=== PATIENT | female | born 1950 | race Caucasian/White ===

== ENCOUNTER 2017-11-27 23:11 | Inpatient (IN) ==
[2017-11-27] MEDS ORDERED: Adenosine Inj 6 MG/2 ML Syringe IV.PUSH ONE (23:37)
[2017-11-27] MEDS ORDERED: dilTIAZem Inj 125 MG in Sodium Chlor 0.9% Inj 100 ML IV.CONT PRN (23:54)
--- NOTE | 2017-11-28 00:13 | ED ---
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 fib or SVT she is too rapid to distinguish , Adenosine to slow her to point of eval for p-waves indicated. no cardiac history Related Data Previous Rx's Medication Instructions Recorded aspirin [Aspirin Low Dose] 81 mg PO DAILY 30 Days #30 tab 12/02/17 furosemide 20 mg PO BID@0900,1800 30 Days tab 12/02/17 lisinopril 5 mg PO DAILY 30 Days #30 tab 12/02/17 metoprolol tartrate 50 mg PO BID 30 Days #60 tab 12/02/17 potassium chloride 10 meq PO DAILY 30 Days #30 tab 12/02/17 Allergies Allergy/AdvReac Type Severity Reaction Status Date / Time cefaclor [From [facility]] Allergy Rash Verified 11/27/17 17:39 Sulfa (Sulfonamide Allergy Rash Verified 11/27/17 17:39 Antibiotics) Review of Systems ROS: all other systems reviewed are negative (hot feeling all over then palpitations slight SOB) PMFSH Family History Family History Mother Family history of cancer Mother Family history of peripheral vascular disease Mother Family history of [place] (myocardial infarction) Social History Social History Substance History: No History of Abuse Second Hand Smoke Exposure: No Smoking Status: Never smoker How Often Do You Have a Drink Containing Alcohol: Never Recent Travel in [facility] within the Last 8 Weeks: No Recent Out of Country Travel within the Last 8 Weeks: No Immunization History Tetanus Immunization: Unsure Exam Narrative Exam Narrative: GENERAL: awake alert no signs of distress EKG 174 BPM SKIN: Warm and dry. HEAD: Atraumatic. Normocephalic. EYES: Pupils equal and round. No scleral icterus. No injection or drainage. ENT: No nasal bleeding or discharge. Mucous membranes pink and moist. NECK: Trachea midline. No JVD. CARDIOVASCULAR: rapid SVT vs AFIB 174 bpm RESPIRATORY: No accessory muscle use. Clear to auscultation. Breath sounds equal bilaterally. GASTROINTESTINAL: Abdomen soft, non-tender, nondistended. Hepatic and splenic margins not palpable. MUSCULOSKELETAL: Extremities without clubbing, cyanosis, or edema. No obvious deformities. NEUROLOGICAL: Awake and alert. No obvious cranial nerve deficits. Motor grossly within normal limits. Five out of 5 muscle strength in the arms and legs. Normal speech. PSYCHIATRIC: Appropriate mood and affect; insight and judgment normal. Course Initial Documented Vital Signs Temperature 98.4 F 11/27/17 23:18 Pulse Rate 115 H 11/27/17 23:18 Respiratory Rate 18 11/27/17 23:18 Blood Pressure 109/78 11/27/17 23:18 Pulse Oximetry 96 11/27/17 23:18 Last Documented Vital Signs Temperature 98.4 F 12/02/17 08:00 Pulse Rate 86 12/02/17 09:00 Respiratory Rate 17 12/02/17 08:00 Blood Pressure 104/63 12/02/17 08:00 Pulse Oximetry 94 L 12/02/17 08:43 Critical Care Time Critical Care Time: Yes Total Critical Care Time: 30 Attestation: cardiac srrhythmia and control with AV node romario meds and then re-eval placed on manager planning and ekg while adenosine 6 with cardiac pause and then return of SVT afib vs SVT second dose to reset heart possible to sinus long pause but then after brief slow heart rate afib now obvious and rate not controlled started on slow drip cardizem at 15 mg /hr but after 15 moinutes still HR 150-170 low dose of cardizem 10mg IVP with good rate control 83 but BP dropped with severe hypotension and pt felt pale and lightheaded nauseous it lasted 10 minutes while 2 liters NS placed with pressure bags and then pt returned to AFIB but rate controlled Cardizem drip started again with 5mg /hr and admitted [facility] intermediate critical care unit on drip stable at this time Medical Decision Making MDM Narrative Medical decision making narrative: Patient was in a rapid new onset supraventricular tachycardia SVT versus A. fib versus a flutter rate was 174 given of 6 of adenosine to slow down and possibly reset. Mother was febrile to slow down enough to see if there are P waves brief episode of sinus pause and then return to rapid 200 bpm 12 adenosine given reset done and then rapidly again went back into a rapid heart rate is put on diltiazem 50 mg an hour to start she is still tachycardia at 170 slowing slightly towards 150 but jumped back up to 170. Then 10 mg of Cardizem was given heart rate slows to the 80s but her pressure gets very hypotensive 66/40 2 L of fluid wide open slowly bring her pressure back up to 110/60 and she is admitted to telemetry for new onset A. fib Cardizem drip will be restarted at 5 mg an hour patient is stable at this time Medical Screen Exam Complete: Yes Emergency Medical Condition: Yes Differential Diagnosis Differential Diagnosis: diagnosis diagnosis could be A. fib RVR SVT a flutter fever induced SVT Lab Data Result diagrams: 12/02/17 05:17 12/02/17 05:17 Lab Results 11/27/17 11/27/17 11/27/17 Range/Units 23:55 23:55 23:55 WBC 8.4 (4.0-11.0) th/mm3 RBC 4.00 (4.00-5.30) mil/mm3 Hgb 12.9 (11.6-15.3) gm/dL Hct 37.7 (35.0-46.0) % MCV 94.2 (80.0-100.0) fL MCH 32.2 (27.0-34.0) pg MCHC 34.1 (32.0-36.0) % RDW 12.9 (11.6-17.2) % Plt Count 266 (150-450) th/mm3 MPV 8.8 (7.0-11.0) fL Neut % (Auto) 64.6 (16.0-70.0) % Lymph % (Auto) 21.2 (9.0-44.0) % [place] % (Auto) 12.9 H (0.0-8.0) % Eos % (Auto) 0.8 (0.0-4.0) % Baso % (Auto) 0.5 (0.0-2.0) % Neut # (Auto) 5.4 (1.8-7.7) th/mm3 Lymph # (Auto) 1.8 (1.0-4.8) th/mm3 [place] # (Auto) 1.1 H (0.0-0.9) th/mm3 Eos # (Auto) 0.1 (0.0-0.4) th/mm3 Baso # (Auto) 0.0 (0.0-0.2) th/mm3 WBC Differential . Differential Comment Auto diff final PT (9.8-11.6) sec INR Ratio APTT (24.3-30.1) sec D-Dimer Quant (PE/DVT) (0.00-0.50) mg/L FEU Sodium 143 (136-145) meq/L Potassium 3.3 L (3.5-5.1) meq/L Chloride 109 H (98-107) meq/L Carbon Dioxide 25.2 (21.0-32.0) meq/L Anion Gap 9 (5-15) meq/L BUN 13 (7-18) mg/dL Creatinine 0.75 (0.50-1.00) mg/dL Estimated GFR 77 L (>89) mL/min Random Glucose 133 H (74-106) mg/dL Calcium 8.0 L D (8.5-10.1) mg/dL Phosphorus (2.5-4.9) mg/dL Magnesium 2.0 (1.5-2.5) mg/dL Total Bilirubin 0.5 (0.2-1.0) mg/dL AST 16 (15-37) U/L ALT 14 (10-53) U/L Alkaline Phosphatase 47 (45-117) U/L Lactate Dehydrogenase (84-246) U/L Troponin I Less than 0.02 L (0.02-0.05) ng/mL B-Natriuretic Peptide (0-100) pg/mL Total Protein 7.0 D (6.4-8.2) g/dL Albumin 2.8 L (3.4-5.0) g/dL TSH (0.358-3.740) uIU/mL Free T4 (0.76-1.46) ng/dL Pleural pH Pleural RBC (0-0) /mm3 Pleural Nuc Cells (0-10) /mm3 Pleural Neutrophils % Pleural Lymphocytes % Pleural Monocytes % Pleural Histocytes % Pleural Mesothelial % Pleural Fluid Comment Pleural Total Protein gm/dL Pleural LDH U/L Pleural Glucose mg/dL 11/27/17 11/28/17 11/28/17 Range/Units 23:55 06:37 12:44 WBC 11.8 H (4.0-11.0) th/mm3 RBC 3.64 L (4.00-5.30) mil/mm3 Hgb 11.6 (11.6-15.3) gm/dL Hct 34.0 L (35.0-46.0) % MCV 93.5 (80.0-100.0) fL MCH 31.8 (27.0-34.0) pg MCHC 34.0 (32.0-36.0) % RDW 12.8 (11.6-17.2) % Plt Count 252 (150-450) th/mm3 MPV 8.4 (7.0-11.0) fL Neut % (Auto) 76.5 H (16.0-70.0) % Lymph % (Auto) 8.6 L (9.0-44.0) % [place] % (Auto) 14.6 H (0.0-8.0) % Eos % (Auto) 0.1 (0.0-4.0) % Baso % (Auto) 0.2 (0.0-2.0) % Neut # (Auto) 9.0 H (1.8-7.7) th/mm3 Lymph # (Auto) 1.0 (1.0-4.8) th/mm3 [place] # (Auto) 1.7 H (0.0-0.9) th/mm3 Eos # (Auto) 0.0 (0.0-0.4) th/mm3 Baso # (Auto) 0.0 (0.0-0.2) th/mm3 WBC Differential . Differential Comment Auto diff final PT (9.8-11.6) sec INR Ratio APTT (24.3-30.1) sec D-Dimer Quant (PE/DVT) (0.00-0.50) mg/L FEU Sodium (136-145) meq/L Potassium (3.5-5.1) meq/L Chloride (98-107) meq/L Carbon Dioxide (21.0-32.0) meq/L Anion Gap (5-15) meq/L BUN (7-18) mg/dL Creatinine (0.50-1.00) mg/dL Estimated GFR (>89) mL/min Random Glucose (74-106) mg/dL Calcium (8.5-10.1) mg/dL Phosphorus (2.5-4.9) mg/dL Magnesium (1.5-2.5) mg/dL Total Bilirubin (0.2-1.0) mg/dL AST (15-37) U/L ALT (10-53) U/L Alkaline Phosphatase (45-117) U/L Lactate Dehydrogenase (84-246) U/L Troponin I 0.07 H (0.02-0.05) ng/mL B-Natriuretic Peptide (0-100) pg/mL Total Protein (6.4-8.2) g/dL Albumin (3.4-5.0) g/dL TSH 3.720 (0.358-3.740) uIU/mL Free T4 1.36 (0.76-1.46) ng/dL Pleural pH Pleural RBC (0-0) /mm3 Pleural Nuc Cells (0-10) /mm3 Pleural Neutrophils % Pleural Lymphocytes % Pleural Monocytes % Pleural Histocytes % Pleural Mesothelial % Pleural Fluid Comment Pleural Total Protein gm/dL Pleural LDH U/L Pleural Glucose mg/dL 11/29/17 11/29/17 11/29/17 Range/Units 04:08 04:08 04:08 WBC 9.2 (4.0-11.0) th/mm3 RBC 3.46 L (4.00-5.30) mil/mm3 Hgb 11.1 L (11.6-15.3) gm/dL Hct 32.3 L (35.0-46.0) % MCV 93.4 (80.0-100.0) fL MCH 32.1 (27.0-34.0) pg MCHC 34.4 (32.0-36.0) % RDW 13.1 (11.6-17.2) % Plt Count 261 (150-450) th/mm3 MPV 8.4 (7.0-11.0) fL Neut % (Auto) 67.2 (16.0-70.0) % Lymph % (Auto) 13.4 (9.0-44.0) % [place] % (Auto) 18.2 H (0.0-8.0) % Eos % (Auto) 0.5 (0.0-4.0) % Baso % (Auto) 0.7 (0.0-2.0) % Neut # (Auto) 6.2 (1.8-7.7) th/mm3 Lymph # (Auto) 1.2 (1.0-4.8) th/mm3 [place] # (Auto) 1.7 H (0.0-0.9) th/mm3 Eos # (Auto) 0.0 (0.0-0.4) th/mm3 Baso # (Auto) 0.1 (0.0-0.2) th/mm3 WBC Differential . Differential Comment Auto diff final PT (9.8-11.6) sec INR Ratio APTT (24.3-30.1) sec D-Dimer Quant (PE/DVT) (0.00-0.50) mg/L FEU Sodium 142 (136-145) meq/L Potassium 3.2 L (3.5-5.1) meq/L Chloride 112 H (98-107) meq/L Carbon Dioxide 21.8 (21.0-32.0) meq/L Anion Gap 8 (5-15) meq/L BUN 8 (7-18) mg/dL Creatinine 0.49 L (0.50-1.00) mg/dL Estimated GFR Greater than 89 (>89) mL/min Random Glucose 110 H (74-106) mg/dL Calcium 7.8 L (8.5-10.1) mg/dL Phosphorus (2.5-4.9) mg/dL Magnesium (1.5-2.5) mg/dL Total Bilirubin (0.2-1.0) mg/dL AST (15-37) U/L ALT (10-53) U/L Alkaline Phosphatase (45-117) U/L Lactate Dehydrogenase 239 (84-246) U/L Troponin I (0.02-0.05) ng/mL B-Natriuretic Peptide (0-100) pg/mL Total Protein (6.4-8.2) g/dL Albumin (3.4-5.0) g/dL TSH (0.358-3.740) uIU/mL Free T4 (0.76-1.46) ng/dL Pleural pH Pleural RBC (0-0) /mm3 Pleural Nuc Cells (0-10) /mm3 Pleural Neutrophils % Pleural Lymphocytes % Pleural Monocytes % Pleural Histocytes % Pleural Mesothelial % Pleural Fluid Comment Pleural Total Protein gm/dL Pleural LDH U/L Pleural Glucose mg/dL 11/29/17 11/29/17 11/30/17 Range/Units 10:41 19:18 04:59 WBC (4.0-11.0) th/mm3 RBC (4.00-5.30) mil/mm3 Hgb (11.6-15.3) gm/dL Hct (35.0-46.0) % MCV (80.0-100.0) fL MCH (27.0-34.0) pg MCHC (32.0-36.0) % RDW (11.6-17.2) % Plt Count (150-450) th/mm3 MPV (7.0-11.0) fL Neut % (Auto) (16.0-70.0) % Lymph % (Auto) (9.0-44.0) % [place] % (Auto) (0.0-8.0) % Eos % (Auto) (0.0-4.0) % Baso % (Auto) (0.0-2.0) % Neut # (Auto) (1.8-7.7) th/mm3 Lymph # (Auto) (1.0-4.8) th/mm3 [place] # (Auto) (0.0-0.9) th/mm3 Eos # (Auto) (0.0-0.4) th/mm3 Baso # (Auto) (0.0-0.2) th/mm3 WBC Differential Differential Comment PT 10.8 (9.8-11.6) sec INR 1.1 Ratio APTT 30.3 H (24.3-30.1) sec D-Dimer Quant (PE/DVT) 2.25 H (0.00-0.50) mg/L FEU Sodium 143 (136-145) meq/L Potassium 3.1 L (3.5-5.1) meq/L Chloride 110 H (98-107) meq/L Carbon Dioxide 23.5 (21.0-32.0) meq/L Anion Gap 10 (5-15) meq/L BUN 6 L (7-18) mg/dL Creatinine 0.42 L (0.50-1.00) mg/dL Estimated GFR Greater than 89 (>89) mL/min Random Glucose 105 (74-106) mg/dL Calcium 7.8 L (8.5-10.1) mg/dL Phosphorus (2.5-4.9) mg/dL Magnesium (1.5-2.5) mg/dL Total Bilirubin (0.2-1.0) mg/dL AST (15-37) U/L ALT (10-53) U/L Alkaline Phosphatase (45-117) U/L Lactate Dehydrogenase (84-246) U/L Troponin I (0.02-0.05) ng/mL B-Natriuretic Peptide (0-100) pg/mL Total Protein (6.4-8.2) g/dL Albumin (3.4-5.0) g/dL TSH (0.358-3.740) uIU/mL Free T4 (0.76-1.46) ng/dL Pleural pH Pleural RBC (0-0) /mm3 Pleural Nuc Cells (0-10) /mm3 Pleural Neutrophils % Pleural Lymphocytes % Pleural Monocytes % Pleural Histocytes % Pleural Mesothelial % Pleural Fluid Comment Pleural Total Protein gm/dL Pleural LDH U/L Pleural Glucose mg/dL 11/30/17 11/30/17 11/30/17 Range/Units 09:50 09:50 13:30 WBC (4.0-11.0) th/mm3 RBC (4.00-5.30) mil/mm3 Hgb (11.6-15.3) gm/dL Hct (35.0-46.0) % MCV (80.0-100.0) fL MCH (27.0-34.0) pg MCHC (32.0-36.0) % RDW (11.6-17.2) % Plt Count (150-450) th/mm3 MPV (7.0-11.0) fL Neut % (Auto) (16.0-70.0) % Lymph % (Auto) (9.0-44.0) % [place] % (Auto) (0.0-8.0) % Eos % (Auto) (0.0-4.0) % Baso % (Auto) (0.0-2.0) % Neut # (Auto) (1.8-7.7) th/mm3 Lymph # (Auto) (1.0-4.8) th/mm3 [place] # (Auto) (0.0-0.9) th/mm3 Eos # (Auto) (0.0-0.4) th/mm3 Baso # (Auto) (0.0-0.2) th/mm3 WBC Differential Differential Comment PT (9.8-11.6) sec INR Ratio APTT (24.3-30.1) sec D-Dimer Quant (PE/DVT) (0.00-0.50) mg/L FEU Sodium (136-145) meq/L Potassium (3.5-5.1) meq/L Chloride (98-107) meq/L Carbon Dioxide (21.0-32.0) meq/L Anion Gap (5-15) meq/L BUN (7-18) mg/dL Creatinine (0.50-1.00) mg/dL Estimated GFR (>89) mL/min Random Glucose (74-106) mg/dL Calcium (8.5-10.1) mg/dL Phosphorus (2.5-4.9) mg/dL Magnesium (1.5-2.5) mg/dL Total Bilirubin (0.2-1.0) mg/dL AST (15-37) U/L ALT (10-53) U/L Alkaline Phosphatase (45-117) U/L Lactate Dehydrogenase (84-246) U/L Troponin I (0.02-0.05) ng/mL B-Natriuretic Peptide 582 H (0-100) pg/mL Total Protein (6.4-8.2) g/dL Albumin (3.4-5.0) g/dL TSH (0.358-3.740) uIU/mL Free T4 (0.76-1.46) ng/dL Pleural pH 8.0 Pleural RBC 221 H (0-0) /mm3 Pleural Nuc Cells 496 H (0-10) /mm3 Pleural Neutrophils 42 % Pleural Lymphocytes 14 % Pleural Monocytes 38 % Pleural Histocytes 5 % Pleural Mesothelial 1 % Pleural Fluid Comment Pleural Total Protein 1.7 gm/dL Pleural LDH 113 U/L Pleural Glucose 102 mg/dL 12/01/17 12/01/17 12/02/17 Range/Units 05:19 05:19 05:17 WBC 6.5 (4.0-11.0) th/mm3 RBC 3.48 L (4.00-5.30) mil/mm3 Hgb 11.0 L (11.6-15.3) gm/dL Hct 32.5 L (35.0-46.0) % MCV 93.4 (80.0-100.0) fL MCH 31.6 (27.0-34.0) pg MCHC 33.9 (32.0-36.0) % RDW 12.8 (11.6-17.2) % Plt Count 361 D (150-450) th/mm3 MPV 7.9 (7.0-11.0) fL Neut % (Auto) 60.9 (16.0-70.0) % Lymph % (Auto) 18.6 (9.0-44.0) % [place] % (Auto) 17.4 H (0.0-8.0) % Eos % (Auto) 2.5 (0.0-4.0) % Baso % (Auto) 0.6 (0.0-2.0) % Neut # (Auto) 4.0 (1.8-7.7) th/mm3 Lymph # (Auto) 1.2 (1.0-4.8) th/mm3 [place] # (Auto) 1.1 H (0.0-0.9) th/mm3 Eos # (Auto) 0.2 (0.0-0.4) th/mm3 Baso # (Auto) 0.0 (0.0-0.2) th/mm3 WBC Differential . Differential Comment Auto diff final PT (9.8-11.6) sec INR Ratio APTT (24.3-30.1) sec D-Dimer Quant (PE/DVT) (0.00-0.50) mg/L FEU Sodium 146 H (136-145) meq/L Potassium 3.5 (3.5-5.1) meq/L Chloride 108 H (98-107) meq/L Carbon Dioxide 29.8 (21.0-32.0) meq/L Anion Gap 8 (5-15) meq/L BUN 5 L (7-18) mg/dL Creatinine 0.52 (0.50-1.00) mg/dL Estimated GFR Greater than 89 (>89) mL/min Random Glucose 96 (74-106) mg/dL Calcium 8.2 L (8.5-10.1) mg/dL Phosphorus 3.0 (2.5-4.9) mg/dL Magnesium 1.9 (1.5-2.5) mg/dL Total Bilirubin (0.2-1.0) mg/dL AST (15-37) U/L ALT (10-53) U/L Alkaline Phosphatase (45-117) U/L Lactate Dehydrogenase (84-246) U/L Troponin I (0.02-0.05) ng/mL B-Natriuretic Peptide 404 H (0-100) pg/mL Total Protein (6.4-8.2) g/dL Albumin 1.9 L (3.4-5.0) g/dL TSH (0.358-3.740) uIU/mL Free T4 (0.76-1.46) ng/dL Pleural pH Pleural RBC (0-0) /mm3 Pleural Nuc Cells (0-10) /mm3 Pleural Neutrophils % Pleural Lymphocytes % Pleural Monocytes % Pleural Histocytes % Pleural Mesothelial % Pleural Fluid Comment Pleural Total Protein gm/dL Pleural LDH U/L Pleural Glucose mg/dL 12/02/17 12/02/17 Range/Units 05:17 05:17 WBC 6.4 (4.0-11.0) th/mm3 RBC 3.84 L (4.00-5.30) mil/mm3 Hgb 12.2 (11.6-15.3) gm/dL Hct 35.2 (35.0-46.0) % MCV 91.8 (80.0-100.0) fL MCH 31.8 (27.0-34.0) pg MCHC 34.6 (32.0-36.0) % RDW 12.9 (11.6-17.2) % Plt Count 420 (150-450) th/mm3 MPV 7.9 (7.0-11.0) fL Neut % (Auto) 53.3 (16.0-70.0) % Lymph % (Auto) 21.5 (9.0-44.0) % [place] % (Auto) 21.3 H (0.0-8.0) % Eos % (Auto) 3.3 (0.0-4.0) % Baso % (Auto) 0.6 (0.0-2.0) % Neut # (Auto) 3.4 (1.8-7.7) th/mm3 Lymph # (Auto) 1.4 (1.0-4.8) th/mm3 [place] # (Auto) 1.4 H (0.0-0.9) th/mm3 Eos # (Auto) 0.2 (0.0-0.4) th/mm3 Baso # (Auto) 0.0 (0.0-0.2) th/mm3 WBC Differential . Differential Comment Auto diff final PT (9.8-11.6) sec INR Ratio APTT (24.3-30.1) sec D-Dimer Quant (PE/DVT) (0.00-0.50) mg/L FEU Sodium 142 (136-145) meq/L Potassium 3.3 L (3.5-5.1) meq/L Chloride 104 (98-107) meq/L Carbon Dioxide 29.5 (21.0-32.0) meq/L Anion Gap 9 (5-15) meq/L BUN 7 (7-18) mg/dL Creatinine 0.57 (0.50-1.00) mg/dL Estimated GFR Greater than 89 (>89) mL/min Random Glucose 98 (74-106) mg/dL Calcium 8.6 (8.5-10.1) mg/dL Phosphorus 3.7 (2.5-4.9) mg/dL Magnesium (1.5-2.5) mg/dL Total Bilirubin (0.2-1.0) mg/dL AST (15-37) U/L ALT (10-53) U/L Alkaline Phosphatase (45-117) U/L Lactate Dehydrogenase (84-246) U/L Troponin I (0.02-0.05) ng/mL B-Natriuretic Peptide (0-100) pg/mL Total Protein (6.4-8.2) g/dL Albumin 2.2 L (3.4-5.0) g/dL TSH (0.358-3.740) uIU/mL Free T4 (0.76-1.46) ng/dL Pleural pH Pleural RBC (0-0) /mm3 Pleural Nuc Cells (0-10) /mm3 Pleural Neutrophils % Pleural Lymphocytes % Pleural Monocytes % Pleural Histocytes % Pleural Mesothelial % Pleural Fluid Comment Pleural Total Protein gm/dL Pleural LDH U/L Pleural Glucose mg/dL Imaging Data Radiologist's impression: Chest CTA 11/29/17 00:00 CONCLUSION: 1. No evidence of pulmonary embolus. 2. Moderate right pleural effusion. Small to moderate left-sided pleural effusion. 3. Compressive atelectasis in both lung bases, right greater than left secondary to the pleural effusions. Chest X-Ray 11/30/17 00:00 CONCLUSION: No pneumothorax status post thoracentesis. Thoracentesis Ultrasound 11/30/17 00:00 CONCLUSION: 1. Uncomplicated thoracentesis Chest X-Ray 12/02/17 06:00 CONCLUSION: There are small bilateral pleural effusions with associated volume loss and/or airspace consolidation. These changes are either stable to slightly increased from the study from 2 days ago. Discharge Plan Discharge Disposition Patient Disposition: 01 Discharge Home Discharge Condition Condition: Good Discharge Order Discharge Orders: Discharge Order (Routine); Ordered 12/02/17 Ordered By: Wil Jones Discharge Details Anticipated Discharge Date: 12/02/17 Discharge Comment: partient will need to discuss anticoagulation with cardiology , primary care. Physicians Team ED Provider: Alberto Mccall Primary Care Provider: Alonzo Howe Attending Provider: Wil Jones Other Providers: Taurus Power Steven R Status ED Status: Left Department Discharge Information Discharge Date/Time: 11/28/17 03:28
[2017-11-28 00:55] LABS: Baso % (Auto) 0.5 % (0.0-2.0); Eos # (Auto) 0.1 th/mm3 (0.0-0.4); Eos % (Auto) 0.8 % (0.0-4.0); Hematocrit 37.7 % (35.0-46.0); Hemoglobin 12.9 gm/dL (11.6-15.3); Lymph # (Auto) 1.8 th/mm3 (1.0-4.8); Lymph % (Auto) 21.2 % (9.0-44.0); Mean Corpuscular HGB Conc 34.1 % (32.0-36.0); Mean Corpuscular Hemoglobin 32.2 pg (27.0-34.0); Mean Corpuscular Volume 94.2 fL (80.0-100.0); Mean Platelet Volume 8.8 fL (7.0-11.0); Mono # (Auto) 1.1 th/mm3 (0.0-0.9); Mono % (Auto) 12.9 % (0.0-8.0); Neut # (Auto) 5.4 th/mm3 (1.8-7.7); Neut % (Auto) 64.6 % (16.0-70.0); Platelet Count 266 th/mm3 (150-450); Red Cell Distribution Width 12.9 % (11.6-17.2); White Blood Count 8.4 th/mm3 (4.0-11.0)
[2017-11-28 01:29] LABS: Alanine Aminotransferase 14 U/L (10-53); Albumin 2.8 g/dL (3.4-5.0); Alkaline Phosphatase 47 U/L (45-117); Anion Gap 9 meq/L (5-15); Aspartate Aminotransferase 16 U/L (15-37); Blood Urea Nitrogen 13 mg/dL (7-18); Carbon Dioxide 25.2 meq/L (21.0-32.0); Chloride 109 meq/L (98-107); Glomerular Filtration Rate 77 mL/min (>89); Glucose,Random 133 mg/dL (74-106); Potassium 3.3 meq/L (3.5-5.1); Sodium 143 meq/L (136-145)
[2017-11-28] MEDS ORDERED: Sodium Chlor 0.9% Inj 500 ML IV.SIG ONE (01:48)
[2017-11-28] MEDS ORDERED: Sod Chloride 0.9% Inj 1,000 ML IV.SIG ONE (01:48)
[2017-11-28] MEDS ORDERED: Adenosine Inj 6 MG/2 ML Syringe IV.PUSH ONE (01:52)
[2017-11-28] MEDS ORDERED: Ketorolac Inj 30 MG/ML (IVP) Vial IV.PUSH ONE (01:53)
[2017-11-28] MEDS ORDERED: Bisacodyl 10 MG Supp RECTAL PRN (02:02)
[2017-11-28] MEDS ORDERED: Acetaminophen 325 MG Tablet PO PRN (02:02)
[2017-11-28] MEDS ORDERED: Potassium Chloride 25 MEQ Effervescent Tablet PO ONE (03:23)
[2017-11-28] MEDS ORDERED: Sodium Chloride 0.9% 2 ML Flush PRN IV.FLUSH (03:25)
[2017-11-28] MEDS: Sod Chloride 0.9% Inj 1,000 ML IV.CONT SCH ×3 (04:03→23:32)
--- NOTE | 2017-11-28 04:20 | P.HPIM ---
History of Present Illness Service: [facility] hospitalists . 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 She returned on 11/28/17 complaining of feeling hot and hearing an irregular and fast rhythm with her stethoscope at home. She was found to be in Atrial fibrillation with RVR and is now admitted to the hospitalist service for further evaluation and management. The patient is seen in her hospital room. She reports that she had 5 days of fever and chills and they seem to go away on Thursday but returned Thursday morning prompting her visit to the emergency room. Her temperature was 101.0 in the ER. Flu testing was negative for flu a and B. Blood cultures were drawn. Chest x-ray showed trace left base atelectasis and was otherwise normal. The patient was treated with Motrin and Tylenol and sent home. After the patient was discharged from the emergency room, she went home to lie down on her bed. She noticed that she was feeling extremely warm and she decided to listen to her chest with her stethoscope. She noticed a rapid and irregular rate and decided to return to the hospital. She was also experiencing severe chest pain that was worse when she tried to take a deep breath and was also worse when she was laying on side and was relieved when she rolled over onto her right side. She is a lifelong non-smoker who recently lost her mother to cancer. . Inpatient Certification: I certify that the inpatient services were ordered in accordance with Medicare regulations governing the order. This includes certification that hospital inpatient services are reasonable and necessary and in the case of services not specified as inpatient-only under 42 CFR 419.22(n), that they are appropriately provided as inpatient services in accordance to with the 2-midnight benchmark under 43 CFR 412.3(e) Estimated Total Length of Stay (Days): 2 Plans for Post Hospital Care: Not yet determined Review of Systems All other systems reviewed negative except as stated in HPI [facility] - History History Provided By: Patient - Medical History Medical History: Medical History (Last Updated 11/28/17 @ 04:17 by VERNA Abdi) Thyroid nodule Onset Date: ~10/2016 - Surgical History Surgical History: Surgical History (Last Updated 11/28/17 @ 04:17 by VERNA Abdi) History of breast biopsy History of tonsillectomy History of tubal ligation - Family History Family History: Family History (Last Updated 11/28/17 @ 04:18 by VERNA Abdi) Mother Family history of cancer Mother Family history of peripheral vascular disease Mother Family history of PA (myocardial infarction) - Tobacco History Smoking Status: Never smoker - Alcohol History How Often Do You Have a Drink Containing Alcohol: Never - Substance Use History Substance History: No History of Abuse - Travel History Recent Travel in the [place] Within the Last 8 Weeks: No Recent Travel Out of the Country Within the Last 8 Weeks: No - Immunization History Tetanus Immunization: Unsure Medications and Allergies Active Medications: Active Medications Acetaminophen (Tylenol) 650 mg PO Q4H PRN PRN Reason: Temp > 100.4 Al Hydroxide/Mg Hydroxide (Milk Of Magnesia Liq) 30 ml PO Q12H PRN PRN Reason: Mild Constipation Bisacodyl (Dulcolax Supp) 10 mg RECTAL DAILY PRN PRN Reason: SEVERE CONSITIPATION Diltiazem HCl 125 mg/ Sodium (Chloride) 125 mls @ 5 mls/hr IV.CONT TITRATE PRN ; Protocol PRN Reason: Per Protocol Last Titration: 11/28/17 02:20 Dose: 5 mg/hr, 5 mls/hr Sodium Chloride (Ns Inj) 1,000 mls @ 100 mls/hr IV.CONT .Q10H CHIO Last Admin: 11/28/17 04:03 Dose: 100 mls/hr Lactulose (Lactulose Liq) 30 ml PO DAILY PRN PRN Reason: SEVERE CONSITIPATION Ondansetron HCl (Zofran Inj) 4 mg IV.PUSH Q6H PRN PRN Reason: NAUSEA OR VOMITING Senna/Docusate Sodium (Sandra-Colace) 1 tab PO BID CHIO Sennosides (Senokot) 17.2 mg PO Q12H PRN PRN Reason: Moderate Constipation Sodium Chloride (Ns Flush) 2 ml IV.FLUSH BID CHIO Sodium Chloride (Ns Flush) 2 ml IV.FLUSH PRN PRN PRN Reason: FLUSH AFTER USING IV ACCESS Allergies Allergy/AdvReac Type Severity Reaction Status Date / Time cefaclor [From Ceclor] Allergy Rash Verified 11/27/17 17:39 Sulfa (Sulfonamide Allergy Rash Verified 11/27/17 17:39 Antibiotics) Home Medications Medication Instructions Recorded Confirmed Type No Known Home Medications 11/27/17 11/27/17 History Exam Vital signs: Vital Signs 11/27/17 23:18 11/27/17 23:32 11/27/17 23:45 Temperature 98.4 F Pulse Rate 115 H 180 H 182 H Respiratory Rate 18 24 Blood Pressure 109/78 140/78 136/61 Pulse Oximetry 96 99 11/28/17 00:00 11/28/17 00:21 11/28/17 01:00 Temperature Pulse Rate 164 H 145 H 150 H Respiratory Rate 20 Blood Pressure 120/68 107/60 124/68 Pulse Oximetry 99 98 11/28/17 01:20 11/28/17 01:30 11/28/17 01:45 Temperature Pulse Rate 96 H 88 100 H Respiratory Rate Blood Pressure 80/53 L 81/51 L 90/65 L Pulse Oximetry 11/28/17 02:00 11/28/17 02:30 Temperature Pulse Rate 106 H 120 H Respiratory Rate Blood Pressure 110/66 112/80 Pulse Oximetry Intake & Output 11/27/17 11/27/17 11/28/17 06:59 18:59 06:59 Intake Total 1500 / 1500 Balance 1500 / 1500 Weight 61 kg Intake: IV 1500 / 1500 NS Inj 1,000 ML @ Wide Open IV. 1000 / 1000 SIG BOLUS ONE Rx#:[id number] NS Inj 500 ML @ Wide Open IV. 500 / 500 SIG BOLUS ONE Rx#:[id number] Narrative: GENERAL: This is a well-nourished, well-developed patient, in no apparent distress. SKIN: No rashes, ecchymoses or lesions. Cool and dry. HEAD: Atraumatic. Normocephalic. EYES: No scleral icterus. No injection or drainage. ENT: Nose without bleeding, purulent drainage. NECK: Trachea midline. No JVD. CARDIOVASCULAR: Irregularly irregular and rapid rate without murmurs, gallops, or rubs. RESPIRATORY: Clear to auscultation. Breath sounds equal bilaterally. No wheezes , rales, or rhonchi. GASTROINTESTINAL: Abdomen soft, non-tender, nondistended. No guarding. MUSCULOSKELETAL: Extremities without clubbing, cyanosis, or edema. No calf tenderness. NEUROLOGICAL: Awake and alert. Motor and sensory grossly within normal limits. Normal speech. . Results - Labs CBC & Chem 7: 11/27/17 23:55 11/27/17 23:55 Labs: Short CBC 11/27/17 Range/Units 23:55 WBC 8.4 (4.0-11.0) th/mm3 Hgb 12.9 (11.6-15.3) gm/dL Hct 37.7 (35.0-46.0) % Plt Count 266 (150-450) th/mm3 BMP 11/27/17 23:55 Sodium 143 Potassium 3.3 L Chloride 109 H Carbon Dioxide 25.2 BUN 13 Creatinine 0.75 Calcium 8.0 L D Cardiac Enzymes 11/27/17 Range/Units 23:55 Troponin I Less than 0.02 L (0.02-0.05) ng/mL Liver Function 11/27/17 Range/Units 23:55 Total Bilirubin 0.5 (0.2-1.0) mg/dL AST 16 (15-37) U/L ALT 14 (10-53) U/L Alkaline Phosphatase 47 (45-117) U/L Albumin 2.8 L (3.4-5.0) g/dL Caprini VTE Risk Assessment Caprini VTE Risk Assessment: Moderate/High Risk (score >= 2) Caprini Risk Assessment Model: Point Value = 1 Point Value = 2 Point Value = 3 Point Value = 5 Age 41-60 Minor surgery BMI > 25 kg/m2 Swollen legs Varicose veins or History of unexplained or recurrent spontaneous Oral contraceptives or hormone replacement Sepsis (< 1 month) Serious lung disease, including pneumonia (< 1 month) Abnormal pulmonary function Acute myocardial infarction Congestive heart failure (< 1 month) History of inflammatory bowel disease Medical patient at bed rest Age 61-74 Arthroscopic surgery Major open surgery (> 45 min) Laparoscopic surgery (> 45 min) Malignancy Confined to bed (> 72 hours) Immobilizing plaster cast Central venous access Age >= 75 History of VTE Family history of VTE Factor V Leiden Prothrombin [id number] Lupus anticoagulant Anticardiolipin antibodies Elevated serum homocysteine Heparin-induced thrombocytopenia Other congenital or acquired thrombophilia Stroke (< 1 month) Elective arthroplasty Hip, pelvis, or leg fracture Acute spinal cord injury (< 1 month) Prophylaxis Regimen: Total Risk Factor Score Risk Level Prophylaxis Regimen 0-1 Low Early ambulation 2 Moderate Order ONE of the following: *Sequential Compression Device (SCD) *Heparin 5000 units SQ BID 3-4 Higher Order ONE of the following medications: *Heparin 5000 units SQ TID *Enoxaparin/Lovenox 40 mg SQ daily (WT < 150 kg, CrCl > 30 mL/min) *Enoxaparin/Lovenox 30 mg SQ daily (WT < 150 kg, CrCl > 10-29 mL/min) *Enoxaparin/Lovenox 30 mg SQ BID (WT < 150 kg, CrCl > 30 mL/min) AND/OR *Sequential Compression Device (SCD) 5 or more Highest Order ONE of the following medications: *Heparin 5000 units SQ TID (Preferred with Epidurals) *Enoxaparin/Lovenox 40 mg SQ daily (WT < 150 kg, CrCl > 30 mL/min) *Enoxaparin/Lovenox 30 mg SQ daily (WT < 150 kg, CrCl > 10-29 mL/min) *Enoxaparin/Lovenox 30 mg SQ BID (WT < 150 kg, CrCl > 30 mL/min) AND *Sequential Compression Device (SCD) 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 She returned on 11/28/17 complaining of feeling hot and hearing an irregular and fast rhythm with her stethoscope at home. She was found to be in Atrial fibrillation with RVR and is now admitted to the hospitalist service for further evaluation and management. Atrial fibrillation with RVR, new onset - continue cardizem drip - replace electrolytes, K+ 3.3 on admission; check magnesium - check TSH and free T4 - patient has a history of a thyroid nodule and was possibly hypothyroid a year ago (states thyroid levels normalized after she stopped drinking smart water) - consult cardiology -Continuous cardiac telemetry Chest pain - serial EKGs and cardiac enzymes - check echocardiogram for cardiac structure and function given positional nature of patient's chest pain and recent flu-like symptoms - PRN Uriah 5/325 mg for pain history of DVT prophylaxis - Heparin 5000 mg subq q8h . Discussed Condition With: Patient, RN, and Dr. Mckeon .
[2017-11-28 04:51] LABS: Free T4 (Free Thyroxine) 1.36 ng/dL (0.76-1.46); Thyroid Stimulating Hormone 3.72 uIU/mL (0.358-3.740)
[2017-11-28] MEDS: Heparin - SQ 10,000 UNITS/ML Vial SQ SCH ×3 (06:17→21:32)
[2017-11-28 06:55] LABS: Baso % (Auto) 0.2 % (0.0-2.0); Eos % (Auto) 0.1 % (0.0-4.0); Hemoglobin 11.6 gm/dL (11.6-15.3); Lymph % (Auto) 8.6 % (9.0-44.0); Mean Corpuscular Hemoglobin 31.8 pg (27.0-34.0); Mean Corpuscular Volume 93.5 fL (80.0-100.0); Mean Platelet Volume 8.4 fL (7.0-11.0); Mono # (Auto) 1.7 th/mm3 (0.0-0.9); Mono % (Auto) 14.6 % (0.0-8.0); Neut % (Auto) 76.5 % (16.0-70.0); Platelet Count 252 th/mm3 (150-450); Red Blood Count 3.64 mil/mm3 (4.00-5.30); Red Cell Distribution Width 12.8 % (11.6-17.2); White Blood Count 11.8 th/mm3 (4.0-11.0)
--- NOTE | 2017-11-28 08:55 | P.PNIM ---
Subjective Interval history: f/u; a-fib with RVR in no acute distress. has some pleuritic chest pain. no fever since last night. no cough or sob. Physical Exam Vital signs: Vital Signs 11/27/17 23:18 11/27/17 23:32 11/27/17 23:45 Temperature 98.4 F Pulse Rate 115 H 180 H 182 H Respiratory Rate 18 24 Blood Pressure 109/78 140/78 136/61 Pulse Oximetry 96 99 11/28/17 00:00 11/28/17 00:21 11/28/17 01:00 Temperature Pulse Rate 164 H 145 H 150 H Respiratory Rate 20 Blood Pressure 120/68 107/60 124/68 Pulse Oximetry 99 98 11/28/17 01:20 11/28/17 01:30 11/28/17 01:45 Temperature Pulse Rate 96 H 88 100 H Respiratory Rate Blood Pressure 80/53 L 81/51 L 90/65 L Pulse Oximetry 11/28/17 02:00 11/28/17 02:30 11/28/17 03:30 Temperature 98.4 F Pulse Rate 106 H 120 H 131 H Respiratory Rate Blood Pressure 110/66 112/80 84/65 L Pulse Oximetry 93 L 11/28/17 03:45 11/28/17 04:00 11/28/17 04:15 Temperature Pulse Rate 131 H 133 H 115 H Respiratory Rate Blood Pressure 92/59 L 94/64 L Pulse Oximetry 93 L 93 L 94 L 11/28/17 04:30 11/28/17 04:45 11/28/17 05:00 Temperature Pulse Rate 97 H 92 H 87 Respiratory Rate 18 Blood Pressure 93/61 L 86/55 L 106/64 Pulse Oximetry 94 L 96 94 L 11/28/17 05:15 11/28/17 05:30 11/28/17 05:45 Temperature Pulse Rate 93 H 91 H 94 H Respiratory Rate Blood Pressure 93/58 L 94/60 L 95/63 L Pulse Oximetry 93 L 94 L 91 L 11/28/17 06:00 11/28/17 06:15 11/28/17 06:30 Temperature Pulse Rate 92 H 93 H 91 H Respiratory Rate Blood Pressure 91/64 L 96/64 L 96/67 L Pulse Oximetry 96 94 L 94 L Intake & Output 11/27/17 11/28/17 11/28/17 18:59 06:59 18:59 Intake Total 1740 / 1740 Output Total 600 / 600 Balance 1140 / 1140 Weight 62.5 kg Intake: IV 1500 / 1500 NS Inj 1,000 ML @ Wide Open IV. 1000 / 1000 SIG BOLUS ONE Rx#:[id number] NS Inj 500 ML @ Wide Open IV. 500 / 500 SIG BOLUS ONE Rx#:[id number] Oral 240 / 240 Output: Urine 600 / 600 - Constitutional no acute distress - Routine Respiratory Exam Present: CTA bilaterally - Routine Cardiovascular Exam Present: tachycardia, irregularly irregular - Routine Abdominal Exam Present: soft - Routine Extremities Exam Comments: no pedal edema. - Routine Neurological Exam Present: alert, oriented X3 Results - Labs CBC & Chem 7: 11/28/17 06:37 11/27/17 23:55 Laboratory Results - last 24 hr 11/27/17 11/27/17 11/27/17 23:55 23:55 23:55 WBC 8.4 RBC 4.00 Hgb 12.9 Hct 37.7 MCV 94.2 MCH 32.2 MCHC 34.1 RDW 12.9 Plt Count 266 MPV 8.8 Neut % (Auto) 64.6 Lymph % (Auto) 21.2 [place] % (Auto) 12.9 H Eos % (Auto) 0.8 Baso % (Auto) 0.5 Neut # (Auto) 5.4 Lymph # (Auto) 1.8 [place] # (Auto) 1.1 H Eos # (Auto) 0.1 Baso # (Auto) 0.0 WBC Differential . Differential Comment Auto diff final Sodium 143 Potassium 3.3 L Chloride 109 H Carbon Dioxide 25.2 Anion Gap 9 BUN 13 Creatinine 0.75 Estimated GFR 77 L Random Glucose 133 H Calcium 8.0 L D Magnesium 2.0 Total Bilirubin 0.5 AST 16 ALT 14 Alkaline Phosphatase 47 Troponin I Less than 0.02 L Total Protein 7.0 D Albumin 2.8 L TSH Free T4 11/27/17 11/28/17 23:55 06:37 WBC 11.8 H RBC 3.64 L Hgb 11.6 Hct 34.0 L MCV 93.5 MCH 31.8 MCHC 34.0 RDW 12.8 Plt Count 252 MPV 8.4 Neut % (Auto) 76.5 H Lymph % (Auto) 8.6 L [place] % (Auto) 14.6 H Eos % (Auto) 0.1 Baso % (Auto) 0.2 Neut # (Auto) 9.0 H Lymph # (Auto) 1.0 [place] # (Auto) 1.7 H Eos # (Auto) 0.0 Baso # (Auto) 0.0 WBC Differential . 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 She returned on 11/28/17 complaining of feeling hot and hearing an irregular and fast rhythm with her stethoscope at home. She was found to be in Atrial fibrillation with RVR and is now admitted to the hospitalist service for further evaluation and management. Atrial fibrillation with RVR, new onset - continue cardizem drip - replace electrolytes, K+ 3.3 on admission- - TSH/ free T4 WNL -check echo - consulted cardiology -Continuous cardiac telemetry Chest pain/ flu-like illness - serial EKGs and cardiac enzymes - check echocardiogram for cardiac structure and function given positional nature of patient's chest pain and recent flu-like symptoms -blood cultures from 11/27 pending; will follow. -continue supportive care with IV fluid and pain control. DVT prophylaxis - Heparin 5000 mg subq q8h
[2017-11-28] MEDS: Senna/Docusate Sodium 8.6/50 MG Tablet PO SCH ×2 (10:07→20:23)
[2017-11-28] MEDS: Sodium Chloride 0.9% 2 ML Flush BID IV.FLUSH SCH ×2 (10:07→20:24)
[2017-11-28] MEDS: Ibuprofen 400 MG Tablet PO PRN ×2 (11:28→19:42)
--- NOTE | 2017-11-28 12:51 | ECHRPT ---
Indication: ATRIAL FIB/FLUTTER CONCLUSIONS Normal left ventricular size. Wall thickness is normal. The left ventricular systolic function is grossly normal on limited imaging. Normal right ventricular size and systolic function. Mild mitral valve regurgitation. There is mild tricuspid valve regurgitation. The estimated pulmonary arterial pressure is 43.4 mmHg. Trivial pulmonary valve regurgitation. BP: / HR: Rhythm: Atrial fibrillation, Atrial flut ter MEASUREMENTS (Male / Female) Normal Values Technical Quality:Fair 2D ECHO LV Diastolic Diameter PLAX 4.4 cm 4.2 - 5.9 / 3.9 - 5.3 cm LV Systolic Diameter PLAX 2.7 cm IVS Diastolic Thickness 0.8 cm 0.6 - 1.0 / 0.6 - 0.9 cm LVPW Diastolic Thickness 0.8 cm 0.6 - 1.0 / 0.6 - 0.9 cm LV Relative Wall Thickness 0.4 RV Internal Dim ED PLAX 2.6 cm LVOT Diameter 2.0 cm Aortic Root Diameter 3.3 cm LA Systolic Diameter LX 2.9 cm 3.0 - 4.0 / 2.7 - 3.8 cm DOPPLER AV Peak Velocity 113.0 cm/s AV Peak Gradient 5.1 mmHg AV Mean Gradient 3.0 mmHg AV Velocity Time Integral 17.9 cm LVOT Peak Velocity 85.0 cm/s LVOT Peak Gradient 2.9 mmHg LVOT Velocity Time Integral 13.5 cm AV Area Cont Eq vti 2.4 cm AV Area Cont Eq pk 2.4 cm Mitral E Point Velocity 86.4 cm/s Mitral A Point Velocity 31.1 cm/s Mitral E to A Ratio 2.8 LV E' Lateral Velocity 9.9 cm/s Mitral E to LV E' Lateral Ratio 8.7 LV E' Septal Velocity 10.4 cm/s Mitral E to LV E' Septal Ratio 8.3 TR Peak Velocity 289.0 cm/s TR Peak Gradient 33.0 mmHg Right Atrial Pressure 10.0 mmHg Pulmonary Artery Systolic Pressu 43.4 mmHg Right Ventricular Systolic Press 43.4 mmHg PV Peak Velocity 47.4 cm/s PV Peak Gradient 0.9 mmHg FINDINGS LEFT VENTRICLE Normal left ventricular size. Wall thickness is normal. The left ventricular systolic function is grossly normal on limited imaging. RIGHT VENTRICLE Normal right ventricular size and systolic function. LEFT ATRIUM The left atrial size is normal. RIGHT ATRIUM The right atrial size is normal. ATRIAL SEPTUM No atrial level shunt is demonstrated by color flow Doppler interrogation. AORTA The aortic root and proximal ascending aorta are not well visualized. MITRAL VALVE [id number] mitral valve regurgitation. AORTIC VALVE Trileaflet aortic valve. No aortic valve stenosis or regurgitation. TRICUSPID VALVE There is mild tricuspid valve regurgitation. The estimated pulmonary arterial pressure is 43.4 mmHg. PULMONARY VALVE Trivial pulmonary valve regurgitation. VESSELS The inferior vena cava is normal in size. PERICARDIUM No pericardial effusion. Jagdish Nuñez MD (Electronically Signed) Final Date:28 November 2017 12:50
--- NOTE | 2017-11-28 13:11 | ECG ---
Date Performed: 11/27/2017 Time Performed: 23:28:26 PTAGE: 67 years EKG: ATRIAL FIBRILLATION WITH RAPID VENTRICULAR RESPONSE MARKED LEFT AXIS DEVIATION MODERATE ST DEPRESSION ABNORMAL ECG INTERPRETATION BASED ON A DEFAULT AGE OF 40 YEARS NO PREVIOUS TRACING DOCTOR: Jagdish Nuñez Interpretating Date/Time 11/28/2017 13:08:12
[2017-11-29] MEDS: Ibuprofen 400 MG Tablet PO PRN ×3 (03:34→19:35)
[2017-11-29 04:23] LABS: Baso # (Auto) 0.1 th/mm3 (0.0-0.2); Baso % (Auto) 0.7 % (0.0-2.0); Eos % (Auto) 0.5 % (0.0-4.0); Hematocrit 32.3 % (35.0-46.0); Hemoglobin 11.1 gm/dL (11.6-15.3); Lymph # (Auto) 1.2 th/mm3 (1.0-4.8); Lymph % (Auto) 13.4 % (9.0-44.0); Mean Corpuscular HGB Conc 34.4 % (32.0-36.0); Mean Corpuscular Hemoglobin 32.1 pg (27.0-34.0); Mean Corpuscular Volume 93.4 fL (80.0-100.0); Mean Platelet Volume 8.4 fL (7.0-11.0); Mono # (Auto) 1.7 th/mm3 (0.0-0.9); Mono % (Auto) 18.2 % (0.0-8.0); Neut # (Auto) 6.2 th/mm3 (1.8-7.7); Neut % (Auto) 67.2 % (16.0-70.0); Platelet Count 261 th/mm3 (150-450); Red Blood Count 3.46 mil/mm3 (4.00-5.30); Red Cell Distribution Width 13.1 % (11.6-17.2); White Blood Count 9.2 th/mm3 (4.0-11.0)
[2017-11-29 04:50] LABS: Anion Gap 8 meq/L (5-15); Blood Urea Nitrogen 8 mg/dL (7-18); Calcium 7.8 mg/dL (8.5-10.1); Carbon Dioxide 21.8 meq/L (21.0-32.0); Chloride 112 meq/L (98-107); Glomerular Filtration Rate Greater Than 89 mL/min (>89); Glucose,Random 110 mg/dL (74-106); Potassium 3.2 meq/L (3.5-5.1); Sodium 142 meq/L (136-145)
[2017-11-29] MEDS ORDERED: Potassium Chlor 10 mEq Premix 10 MEQ/100 ML PIGGYBACK IV.SIG ONE (05:12)
[2017-11-29] MEDS: Heparin - SQ 10,000 UNITS/ML Vial SQ SCH ×2 (05:31→13:09)
--- NOTE | 2017-11-29 08:54 | P.PNIM ---
Subjective Interval history: f/u; a-fib with RVR in no acute distress. although still on oxygen via [place]. no fever today. denies chest pain. says that overall she's feeling better although still with some sob and cough. still on Cardizem drip. Physical Exam Vital signs: Vital Signs 11/28/17 09:00 11/28/17 10:00 11/28/17 11:00 Temperature 98.9 F Pulse Rate 94 H 89 93 H Respiratory Rate 20 Blood Pressure 114/63 Pulse Oximetry 91 L 11/28/17 12:00 11/28/17 13:00 11/28/17 14:00 Temperature Pulse Rate 95 H 88 92 H Respiratory Rate Blood Pressure Pulse Oximetry 11/28/17 15:00 11/28/17 16:00 11/28/17 17:00 Temperature 98.3 F Pulse Rate 85 83 98 H Respiratory Rate 20 Blood Pressure 104/63 Pulse Oximetry 91 L 11/28/17 18:00 11/28/17 19:00 11/28/17 20:00 Temperature 99.7 F H Pulse Rate 98 H 98 H 92 H Respiratory Rate 20 Blood Pressure 112/58 L Pulse Oximetry 93 L 11/28/17 20:22 11/28/17 21:21 11/28/17 22:00 Temperature Pulse Rate 100 H 104 H Respiratory Rate 18 Blood Pressure Pulse Oximetry 11/28/17 23:00 11/29/17 00:00 11/29/17 01:00 Temperature 98.5 F Pulse Rate 80 80 81 Respiratory Rate 22 Blood Pressure 92/56 L Pulse Oximetry 92 L 11/29/17 02:00 11/29/17 03:00 11/29/17 03:58 Temperature 99.0 F Pulse Rate 83 90 91 H Respiratory Rate 18 Blood Pressure 103/67 Pulse Oximetry 93 L 11/29/17 05:00 11/29/17 06:00 Temperature Pulse Rate 80 83 Respiratory Rate Blood Pressure Pulse Oximetry Intake & Output 11/28/17 11/29/17 11/29/17 18:59 06:59 18:59 Intake Total 1000 / 1000 1730 / 1730 Output Total 200 / 200 1100 / 1100 Balance 800 / 800 630 / 630 Weight 62 kg Intake: IV 1000 / 1000 1010 / 1010 NS Inj 1,000 ML @ 100 mls/hr IV 1000 / 1000 1000 / 1000 .CONT .Q10H CHIO Rx#:[id number] Cardizem Inj 125 MG In NS Inj 0 / 0 100 ML @ 5 MG/HR 5 mls/hr IV. CONT TITRATE PRN Rx#:[id number] KCl 10 mEq Premix Inj 10 meq In 100 ml @ 100 mls/hr IV.SIG ONCE ONE Rx#:[id number] Oral 720 / 720 Output: Urine 200 / 200 1100 / 1100 Other: # Voids 4 Date of Last Bowel Movement 11/28/17 11/28/17 # Bowel Movements 2 - Constitutional no acute distress - Routine Respiratory Exam Present: CTA bilaterally, diminished air movement (in the bases.) - Routine Cardiovascular Exam Present: tachycardia, irregularly irregular - Routine Abdominal Exam Present: soft - Routine Extremities Exam Comments: no pedal edema. - Routine Neurological Exam Present: alert, oriented X3 Results - Labs CBC & Chem 7: 11/29/17 04:08 11/29/17 04:08 Laboratory Results - last 24 hr 11/28/17 11/29/17 11/29/17 12:44 04:08 04:08 WBC 9.2 RBC 3.46 L Hgb 11.1 L Hct 32.3 L MCV 93.4 MCH 32.1 MCHC 34.4 RDW 13.1 Plt Count 261 MPV 8.4 Neut % (Auto) 67.2 Lymph % (Auto) 13.4 [place] % (Auto) 18.2 H Eos % (Auto) 0.5 Baso % (Auto) 0.7 Neut # (Auto) 6.2 Lymph # (Auto) 1.2 [place] # (Auto) 1.7 H Eos # (Auto) 0.0 Baso # (Auto) 0.1 WBC Differential . 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 She returned on 11/28/17 complaining of feeling hot and hearing an irregular and fast rhythm with her stethoscope at home. She was found to be in Atrial fibrillation with RVR and is now admitted to the hospitalist service for further evaluation and management. Atrial fibrillation with RVR, new onset - will start on oral Cardizem and try to taper off the Cardizem drip - TSH/ free T4 WNL - echo with normal EF - consulted cardiology -Continuous cardiac telemetry -check d-dimer Chest pain/ flu-like illness -continue supportive care with IV fluid and pain control. Hypokalemia; replaced- will monitor. DVT prophylaxis - Heparin 5000 mg subq q8h Discharge Planning: within the next 48 hrs if clinically improves.
[2017-11-29] MEDS: dilTIAZem 30 MG Tablet PO SCH ×4 (09:56→20:53)
[2017-11-29] MEDS: Senna/Docusate Sodium 8.6/50 MG Tablet PO SCH ×2 (09:56→20:54)
[2017-11-29] MEDS: Sodium Chloride 0.9% 2 ML Flush BID IV.FLUSH SCH ×2 (09:57→20:53)
[2017-11-29] MEDS: Sod Chloride 0.9% Inj 1,000 ML IV.CONT SCH ×2 (09:57→18:00)
--- NOTE | 2017-11-29 14:02 | CT ---
EXAM DATE: 11/29/2017 1:32 PM EDT AGE/SEX: 67 years / Female INDICATIONS: Embolism, Short of breath CLINICAL DATA: This is the patient's initial encounter. Patient reports that signs and symptoms have been present for 2 days and indicates a pain score of 4/10. MEDICAL/SURGICAL HISTORY: . Thyroid nodule Tonsillectomy. Tubal ligation. Right breast biopsy RADIATION DOSE: 12.22 CTDI (mGy) [place] [facility] [place]27/2017. . TECHNIQUE: Volumetric scanning was performed using a multi-row detector CT scanner during bolus infu sincere of 73 ml Omnipaque 350 (iohexol) nonionic water-soluble contrast as a single exam dose. The whit a was post processed with a variety of visualization algorithms including full volume maximum intensi ty projection and sliding thin slab reformation. Using automated exposure control and adjustment of t he mA and/or kV according to patient size, radiation dose was kept as low as reasonably achievable to obtain optimal diagnostic quality images. DICOM format image data is available electronically for r eview and comparison. FINDINGS: Pulmonary Arteries: No filling defects are seen in the pulmonary arteries out to the subsegmental ve ssels. The left and right pulmonary arteries are normal in diameter. Lung: There is compressive atelectasis in both lung bases, right greater than left. Effusion: There is a moderate right-sided pleural effusion. There is a small to moderate left-sided pleural effusion. Mediastinum: No evidence of mediastinal or hilar adenopathy. Other: The axilla is unremarkable. CONCLUSION: 1. No evidence of pulmonary embolus. 2. Moderate right pleural effusion. Small to moderate left-sided pleural effusion. 3. Compressive atelectasis in both lung bases, right greater than left secondary to the pleural effu sions. Electronically signed by: Tyrell Lord MD 11/29/2017 2:01 PM EDT
--- NOTE | 2017-11-29 14:48 | P.PN ---
Subjective Interval history: Some chest tightness and SOB Physical Exam Vital signs: Vital Signs 11/28/17 15:00 11/28/17 16:00 11/28/17 17:00 Temperature 98.3 F Pulse Rate 85 83 98 H Respiratory Rate 20 Blood Pressure 104/63 Pulse Oximetry 91 L 11/28/17 18:00 11/28/17 19:00 11/28/17 20:00 Temperature 99.7 F H Pulse Rate 98 H 98 H 92 H Respiratory Rate 20 Blood Pressure 112/58 L Pulse Oximetry 93 L 11/28/17 20:22 11/28/17 21:21 11/28/17 22:00 Temperature Pulse Rate 100 H 104 H Respiratory Rate 18 Blood Pressure Pulse Oximetry 11/28/17 23:00 11/29/17 00:00 11/29/17 01:00 Temperature 98.5 F Pulse Rate 80 80 81 Respiratory Rate 22 Blood Pressure 92/56 L Pulse Oximetry 92 L 11/29/17 02:00 11/29/17 03:00 11/29/17 03:58 Temperature 99.0 F Pulse Rate 83 90 91 H Respiratory Rate 18 Blood Pressure 103/67 Pulse Oximetry 93 L 11/29/17 05:00 11/29/17 06:00 11/29/17 07:00 Temperature 98.8 F Pulse Rate 80 83 86 Respiratory Rate 20 Blood Pressure 109/63 Pulse Oximetry 91 L 11/29/17 08:00 11/29/17 09:00 11/29/17 10:00 Temperature Pulse Rate 87 90 85 Respiratory Rate 20 Blood Pressure Pulse Oximetry 11/29/17 11:00 11/29/17 12:00 11/29/17 13:00 Temperature 98.6 F Pulse Rate 90 89 90 Respiratory Rate 20 Blood Pressure 119/68 Pulse Oximetry 91 L Intake & Output 11/28/17 11/29/17 11/29/17 18:59 06:59 18:59 Intake Total 1000 / 1000 1730 / 1730 1100 / 1100 Output Total 200 / 200 1100 / 1100 Balance 800 / 800 630 / 630 1100 / 1100 Weight 62 kg Intake: IV 1000 / 1000 1010 / 1010 1100 / 1100 NS Inj 1,000 ML @ 100 mls/hr IV 1000 / 1000 1000 / 1000 1000 / 1000 .CONT .Q10H [facility] Rx#:[id number] Cardizem Inj 125 MG In NS Inj 0 / 0 100 ML @ 5 MG/HR 5 mls/hr IV. CONT TITRATE PRN Rx#:[id number] KCl 10 mEq Premix Inj 10 meq In 100 / 100 100 ml @ 100 mls/hr IV.SIG ONCE ONE Rx#:[id number] Oral 720 / 720 Output: Urine 200 / 200 1100 / 1100 Other: # Voids 4 Date of Last Bowel Movement 11/28/17 11/28/17 11/28/17 # Bowel Movements 2 - Constitutional mild distress - Routine HEENT Exam Head: Present: normocephalic Eye: Present: PERRL ENT: Present: mucous membranes moist - Routine Respiratory Exam Present: crackles, diminished air movement - Routine Cardiovascular Exam Present: RRR, S1, S2 - Routine Abdominal Exam Present: soft - Routine Extremities Exam Present: pulses intact, normal capillary refill - Routine Neurological Exam Present: alert, oriented X3 - Detailed Neurological Exam: Coma Scale Eye Opening: Spontaneous Verbal Response: Oriented Motor Response: Obey commands Brody Coma Scale Total: 15 Results - Labs CBC & Chem 7: 11/29/17 04:08 11/29/17 04:08 Laboratory Results - last 24 hr 11/29/17 11/29/17 11/29/17 04:08 04:08 10:41 WBC 9.2 RBC 3.46 L Hgb 11.1 L Hct 32.3 L MCV 93.4 MCH 32.1 MCHC 34.4 RDW 13.1 Plt Count 261 MPV 8.4 Neut % (Auto) 67.2 Lymph % (Auto) 13.4 Jennings % (Auto) 18.2 H Eos % (Auto) 0.5 Baso % (Auto) 0.7 Neut # (Auto) 6.2 Lymph # (Auto) 1.2 Jennings # (Auto) 1.7 H Eos # (Auto) 0.0 Baso # (Auto) 0.1 WBC Differential . Differential Comment Auto diff final D-Dimer Quant (PE/DVT) 2.25 H Sodium 142 Potassium 3.2 L Chloride 112 H Carbon Dioxide 21.8 Anion Gap 8 BUN 8 Creatinine 0.49 L Estimated GFR Greater than 89 Random Glucose 110 H Calcium 7.8 L - Imaging Impressions Chest CTA 11/29/17 00:00 CONCLUSION: 1. No evidence of pulmonary embolus. 2. Moderate right pleural effusion. Small to moderate left-sided pleural effusion. 3. Compressive atelectasis in both lung bases, right greater than left secondary to the pleural effusions. Assessment and Plan - Assessment (1) Atrial fibrillation Code(s): I48.91 - Unspecified atrial fibrillation Status: Acute Plan: Back into sinus rhythm HR control. Continue with current management I will be available on a PRN basis. (2) SOB (shortness of breath) Code(s): R06.02 - Shortness of breath Status: Acute Plan: Reported SOB CTA negative for pulmonary embolism. Bilateral pleural effusion noted Pulmonary consulted case discussed with patient
--- NOTE | 2017-11-29 17:19 | MB ---
cc: Kalyan Urena MD DATE: 11/29/2017 HISTORY: Ms. Sheffield is a 67-year-old white female who within the last 10-14 days developed a sore throat with some low-grade temperature and "flu-like symptoms," who initially treated herself with Motrin and/or Tylenol, and symptoms seemed to have been resolving. However on 11/27/2017, she developed a sensation of shortness of breath and chest tightness while lying flat. She came in to the emergency room to be evaluated. During that visit, she had a nasal wash which was negative for influenza A and B antigen. Also had blood cultures, which were negative. Chest x-ray was performed which revealed mild left basilar atelectasis, but no effusions, no significant infiltrates. It was thought that she had a viral syndrome, and she went home. Several hours later at home, she noticed her heart pounding in her chest. 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 She was seen by Cardiology, converted with medication, and an echocardiogram was done which revealed normal LV function and size, normal right ventricular function and size, mild elevation in pulmonary artery pressure with mild mitral valve regurgitation. She was admitted for further evaluation. She continues to have mild shortness of breath lying flat and some pressure in her chest. The palpitations have resolved. At no point did she produce significant sputum. She had no hemoptysis. She never had pleuritic chest pain. There has been no recent edema. The only recent travel was months ago to [place] and then to [place], but she was not sick on either of those trips. She has never smoked. She has had no previous pulmonary disease. No unusual animal exposures. In light of the new-onset atrial fibrillation and the febrile syndrome, although her chest x-ray was normal, she had a CTA yesterday which revealed no evidence of thromboembolic disease. Some progressive atelectasis, particularly at the right base. No adenopathy but a fairly large right pleural effusion and a small left effusion. This is why I was consulted. PAST MEDICAL HISTORY: T and A as a child, tubal ligation, benign breast biopsy years ago. Recent thyroid evaluation with some nodularity. She was told it was benign, and Dr. Howe is following that. No other surgery. She has no medical illnesses, takes no medication regular medication. SOCIAL HISTORY: , living with her of 6 years. Her first . She has never smoked. There is no illicit drug use or alcohol use. 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 She has never had a positive PPD. ALLERGIES: SULFA AND CECLOR, BOTH OF WHICH CAUSED RASH. CURRENT MEDICATIONS IN THE HOSPITAL: Reviewed in the EMR. FAMILY HISTORY: She was adopted, although she did know her mother who 3 years ago from lung cancer and was a smoker. No other family history known other than the fact that she has 2 children, 2 daughters who are in good health. REVIEW OF SYSTEMS: She has had no nausea, vomiting, change in bowel habits, abdominal discomfort, or chronic reflux disease. No history of sinus disease. No significant musculoskeletal complaints with this illness. No rash. PHYSICAL EXAMINATION: GENERAL: She is awake, alert, very comfortable at rest, 98 degrees, pulse 90 and regular, respirations 18, O2 saturation 92%-94%. Blood pressure 106/61. HEENT: Sclerae are anicteric. Mucous membranes are moist. NECK: Veins are flat. There is a small adenopathy, a small lymph node palpable in the right submandibular region, really nontender. No other adenopathy in the neck, supraclavicular region. CHEST: Entirely clear, although somewhat dull to percussion with decreased breath sounds at the bases, right greater than left. No pleural friction rubs. No rales or wheezes. No congestion. HEART: Regular heart rhythm. No harsh murmur. No audible S3. ABDOMEN: Soft. No peripheral edema or calf tenderness. No cyanosis or clubbing. As noted previously, blood cultures had been negative on 11/27/2017. LABORATORY DATA: White blood cell count is normal, hemoglobin 11.1, platelet count 261. D-dimer was elevated. PT, APTT, INR pending. Mild decrease in potassium. BUN and creatinine are normal. Liver functions are normal. Albumin slightly low at 2.8. DISCUSSION: Ms. Sheffield presents with a febrile syndrome. Unclear etiology. Sounds like a URI, probably viral, but then it was complicated by atrial fibrillation. She now has a rather significant right pleural effusion, probably related to this in some fashion. Question whether it is infectious or inflammatory or related to the atrial fibrillation. She is back in sinus rhythm. I have discontinued her subcutaneous heparin. At this point, she is mobile and ambulatory. We need to stop that, so we can proceed with a diagnostic and therapeutic right thoracentesis. I put that in to be done with radiology ultrasound guidance, and orders are submitted for routine chemistry, cell count, cytologies, and cultures. I have reviewed this plan thoroughly with she, her , and her daughter, who is here at the bedside. Further diagnostic and/or therapeutic intervention will depend on the results of these initial diagnostic studies and her ongoing clinical course. R. Eyal Urena MD RSW/ravi , 04:38 PM , 04:50 PM
[2017-11-29 20:23] LABS: Activated Partial Thrombo Time 30.3 sec (24.3-30.1); INR 1.1 Ratio; Prothrombin Time 10.8 sec (9.8-11.6)
[2017-11-30] MEDS: Ibuprofen 400 MG Tablet PO PRN (03:27)
[2017-11-30] MEDS: Sod Chloride 0.9% Inj 1,000 ML IV.CONT SCH (04:33)
[2017-11-30 06:04] LABS: Anion Gap 10 meq/L (5-15); Blood Urea Nitrogen 6 mg/dL (7-18); Calcium 7.8 mg/dL (8.5-10.1); Carbon Dioxide 23.5 meq/L (21.0-32.0); Chloride 110 meq/L (98-107); Glomerular Filtration Rate Greater Than 89 mL/min (>89); Glucose,Random 105 mg/dL (74-106); Potassium 3.1 meq/L (3.5-5.1); Sodium 143 meq/L (136-145)
--- NOTE | 2017-11-30 07:30 | MB ---
cc: Jagdish Nuñez MD DATE: 11/28/2017 REASON FOR CONSULTATION: Atrial fibrillation and fast ventricular response. HISTORY OF PRESENT ILLNESS: Mrs. Sheffield is a 67-year-old female with no history of systemic illness. Very active, on no medication. Beginning last week with shortness of breath and fever. She went to the emergency warm. A flu test was negative. She was subsequently discharged home. She was readmitted due to atrial fibrillation with fast ventricular response and chest pain when taking a deep breath. Currently back into sinus rhythm. I was consulted for evaluation and management. The chart was reviewed. The patient was evaluated. ALLERGIES: CEFACLOR AND SULFA. SOCIAL HISTORY: As mentioned before, the patient is negative for smoking and drinking. FAMILY HISTORY: Noncontributory to her current medical condition. MEDICATIONS: She is on her acetaminophen. She is on ibuprofen, magnesium, Zofran. REVIEW OF SYSTEMS: Currently, she referred no chest pain. Chest pain only when moving to the left side or taking a deep breath but improved with Tylenol. No chest discomfort. No palpitation. No fever. PHYSICAL EXAMINATION: GENERAL: Alert, fully oriented. VITAL SIGNS: Blood pressure is 114/63, pulse 80, respiratory rate 18. LUNGS: Ventilated. CARDIOVASCULAR: S1, S2. Regular. No gallop. ABDOMEN: Soft. No mass. No bruits. EXTREMITIES: No edema. LABORATORY DATA: Electrocardiogram shows atrial fibrillation with fast ventricular response. Current telemetry shows sinus rhythm. Labs: Hemoglobin 11.6, white blood cell 11.8. Potassium 3.3, creatinine 0.75. TSH 3.72. Troponin 0.07. ASSESSMENT AND RECOMMENDATIONS: Mrs. Sheffield has apparently a viral infection. She was seen in the emergency room for a fever. Since then, she is feeling tired. Subsequently, she developed atrial fibrillation with fast ventricular response. That may be still part of the inflammatory process provoked by possible viral infection. Normal ejection fraction. TSH is normal. 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 At this point, my recommendation is continued observation. Hydration. She will need aspirin on discharge. No need for anticoagulation for the atrial fibrillation. Also, troponin is only 0.07. Chest discomfort is when taking a deep breath and improved with ibuprofen. There are no acute ST or T-wave changes. There is no significant risk factor. There is no need at this point for ischemic report. As mentioned before, case discussed with her daughter and her . Continue with current management. I will follow her during the hospitalization. MD JESUS Zhou/ravi/rojas , 02:31 PM , 02:41 PM
[2017-11-30] MEDS: dilTIAZem 30 MG Tablet PO SCH ×2 (09:02→13:08)
[2017-11-30] MEDS: Senna/Docusate Sodium 8.6/50 MG Tablet PO SCH (09:02)
[2017-11-30] MEDS: Sodium Chloride 0.9% 2 ML Flush BID IV.FLUSH SCH ×2 (09:02→21:35)
--- NOTE | 2017-11-30 10:10 | XR ---
EXAM DATE: 11/30/2017 12:00 AM EDT AGE/SEX: 67 years / Female INDICATIONS: Post right side thoracentesis. CLINICAL DATA: This is the patient's initial encounter. Patient reports that signs and symptoms have been present for 1 day and indicates a pain score of 3/10. MEDICAL/SURGICAL HISTORY: None. None. COMPARISON: [facility] [place]ST 1V SINGLE AP, 11/27/2017. . FINDINGS: A single frontal expiratory view of the chest was performed. Minimal bibasilar densities and small ef fusions. No evidence of pneumothorax. Mediastinal structures are in the midline. CONCLUSION: No pneumothorax status post thoracentesis. Electronically signed by: Eagle Aguilar MD 11/30/2017 10:09 AM EDT
[2017-11-30 11:06] LABS: Total Protein,Pleural Fluid 1.7 gm/dL
--- NOTE | 2017-11-30 11:50 | US ---
EXAM DATE: 11/30/2017 12:00 AM EDT AGE/SEX: 67 years / Female INDICATIONS: Right pleural effusion. CLINICAL DATA: This is the patient's initial encounter. Patient reports that signs and symptoms have been present for 1 day and indicates a pain score of 0/10. MEDICAL/SURGICAL HISTORY: . Thyroid nodule. Tonsillectomy. Tubal ligation. Right breast biops y. COMPARISON: No prior exams available for comparison. FLUID: Total volume of 800 cc of clear, yellow fluid was removed. Fluid was sent to lab for ordered studies. . . TECHNIQUE: Ultrasound guidance for thoracentesis. Thoracentesis. The risks, benefits, and alternatives to ultrasound guided thoracentesis were explained to the patien t in lay simple terms, including the risk of bleeding and infection. Written and verbal informed con sent was obtained. Appropriate area for right thoracentesis was marked under ultrasound guidance with the patient in the upright position. Overlying skin was prepped and draped in the usual sterile fashion and with local anesthetic, a dermatotomy was made with an 11 blade scalpel. A 6 Spanish thoracentesis catheter was placed in the pleural space and fluid was removed. Catheter was then removed and a sterile dressing applied. There were no immediate complications. The patient tolerated the procedure well and the lef t the ultrasound suite in stable condition. Chest radiograph is to be obtained. FINDINGS: Adequate fluid is present for thoracentesis CONCLUSION: 1. Uncomplicated thoracentesis Electronically signed by: Alonzo Hogan MD 11/30/2017 11:48 AM EDT
[2017-11-30 12:39] LABS: Neutrophils,Pleural Fluid 42 %; RBC,Pleural Fluid 221 /mm3 (0-0)
[2017-11-30 12:40] LABS: Lymphocytes,Pleural Fluid 14 %; Mesothelial,Pleural Fluid 1 %; Monocytes,Pleural Fluid 38 %
--- NOTE | 2017-11-30 16:50 | P.PNIM ---
Subjective Interval history: Patient says she is feeling better than yesterday. Denies any chest pain. Physical Exam Vital signs: Vital Signs 11/29/17 17:00 11/29/17 18:00 11/29/17 19:00 Temperature Pulse Rate 93 H 94 H 94 H Respiratory Rate Blood Pressure Pulse Oximetry 11/29/17 20:00 11/29/17 21:00 11/29/17 22:00 Temperature 98.3 F Pulse Rate 104 H 91 H 87 Respiratory Rate 22 Blood Pressure 143/66 H Pulse Oximetry 92 L 11/29/17 23:00 11/29/17 23:30 11/30/17 00:00 Temperature 99 F Pulse Rate 88 93 H 87 Respiratory Rate 22 Blood Pressure 124/73 Pulse Oximetry 92 L 11/30/17 01:00 11/30/17 02:00 11/30/17 03:00 Temperature Pulse Rate 85 85 89 Respiratory Rate Blood Pressure Pulse Oximetry 11/30/17 03:54 11/30/17 03:55 11/30/17 04:33 Temperature 98.5 F Pulse Rate 92 H 82 Respiratory Rate 22 22 Blood Pressure 120/73 Pulse Oximetry 92 L 11/30/17 04:59 11/30/17 06:00 11/30/17 09:34 Temperature 98.1 F Pulse Rate 85 83 76 Respiratory Rate 20 Blood Pressure 124/71 Pulse Oximetry 91 L 11/30/17 09:53 Temperature 97.9 F Pulse Rate 82 Respiratory Rate 20 Blood Pressure 115/72 Pulse Oximetry 91 L Intake & Output 11/29/17 11/30/17 11/30/17 18:59 06:59 18:59 Intake Total 2580 / 2580 1270 / 1270 Output Total 1400 / 1400 1500 / 1500 Balance 1180 / 1180 -230 / -230 Weight 64.5 kg Intake: IV 2100 / 2100 550 / 550 NS Inj 1,000 ML @ 100 mls/hr IV 2000 / 2000 550 / 550 .CONT .Q10H [facility] Rx#:[id number] KCl 10 mEq Premix Inj 10 meq In 100 / 100 100 ml @ 100 mls/hr IV.SIG ONCE ONE Rx#:[id number] Oral 480 / 480 720 / 720 Output: Urine 1400 / 1400 1500 / 1500 Other: Date of Last Bowel Movement 11/29/17 11/29/17 # Bowel Movements 1 Narrative: GENERAL: patient sitting up in bed. Appears comfortable. SKIN: Warm and dry. HEAD: Normocephalic. EYES: No scleral icterus. No injection or drainage. NECK: Supple, trachea midline. No JVD. CARDIOVASCULAR: Regular rate and rhythm without murmurs, gallops, or rubs. RESPIRATORY: Breath sounds equal bilaterally. No accessory muscle use. GASTROINTESTINAL: Abdomen soft, non-tender, nondistended. MUSCULOSKELETAL: No cyanosis, or edema. BACK: Nontender without obvious deformity. No CVA tenderness. . Results - Labs CBC & Chem 7: 11/29/17 04:08 11/30/17 04:59 Laboratory Results - last 24 hr 11/29/17 11/29/17 11/30/17 04:08 19:18 04:59 PT 10.8 INR 1.1 APTT 30.3 H Sodium 143 Potassium 3.1 L Chloride 110 H Carbon Dioxide 23.5 Anion Gap 10 BUN 6 L Creatinine 0.42 L Estimated GFR Greater than 89 Random Glucose 105 Calcium 7.8 L Lactate Dehydrogenase 239 B-Natriuretic Peptide Pleural pH Pleural RBC Pleural Nuc Cells Pleural Neutrophils Pleural Lymphocytes Pleural Monocytes Pleural Histocytes Pleural Mesothelial Pleural Fluid Comment Pleural Total Protein Pleural LDH Pleural Glucose 11/30/17 11/30/17 11/30/17 09:50 09:50 13:30 PT INR APTT Sodium Potassium Chloride Carbon Dioxide Anion Gap BUN Creatinine Estimated GFR Random Glucose Calcium Lactate Dehydrogenase B-Natriuretic Peptide 582 H Pleural pH 8.0 Pleural RBC 221 H Pleural Nuc Cells 496 H Pleural Neutrophils 42 Pleural Lymphocytes 14 Pleural Monocytes 38 Pleural Histocytes 5 Pleural Mesothelial 1 Pleural Fluid Comment Pleural Total Protein 1.7 Pleural LDH 113 Pleural Glucose 102 - Imaging Impressions Chest X-Ray 11/30/17 00:00 CONCLUSION: No pneumothorax status post thoracentesis. Thoracentesis Ultrasound 11/30/17 00:00 CONCLUSION: 1. 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 She returned on 11/28/17 complaining of feeling hot and hearing an irregular and fast rhythm with her stethoscope at home. She was found to be in Atrial fibrillation with RVR and is now admitted to the hospitalist service for further evaluation and management. //Atrial fibrillation with RVR, new onset - will start on oral Cardizem and try to taper off the Cardizem drip - TSH/ free T4 WNL - echo with normal EF - consulted cardiology -Continuous cardiac telemetry -check d-dimer = D-dimer elevated. CTA negative for pulmonary embolism, however does show small to monitor left-sided pleural effusion, moderate right-sided pleural effusion. Heart rate controlled on diltiazem. Cardiology following. Appreciate assistance. = Patient back in A. fib RVR. We will increase Cardizem to 60 mg 4 times a day. Was on Cardizem drip with rate of 15 prior to being placed on by mouth. //Bilateral pleural effusions. = CT pulmonary antigram on admission with moderate right-sided pleural effusion , small to moderate left-sided effusion.- = Status post thoracentesis with predominantly monocytes, LDH 113. Transitive = Likely secondary to CHF versus malignancy. Cytology pending. Pulmonary following. Appreciate assistance. //Chest pain/ flu-like illness -continue supportive care with IV fluid and pain control. Hypokalemia; replaced just- will monitor. DVT prophylaxis - Heparin 5000 mg subq q8h Discussed Condition With: patient, nurse, daughter at bedside.
[2017-11-30] MEDS ORDERED: Metoprolol Tartrate 25 MG Tablet PO ONE (16:55)
[2017-11-30] MEDS ORDERED: dilTIAZem 60 MG Tablet PO SCH (18:00)
[2017-11-30] MEDS: Furosemide 20 MG Tablet PO SCH (18:10)
[2017-12-01 05:38] LABS: Baso % (Auto) 0.6 % (0.0-2.0); Eos # (Auto) 0.2 th/mm3 (0.0-0.4); Eos % (Auto) 2.5 % (0.0-4.0); Hematocrit 32.5 % (35.0-46.0); Lymph # (Auto) 1.2 th/mm3 (1.0-4.8); Lymph % (Auto) 18.6 % (9.0-44.0); Mean Corpuscular HGB Conc 33.9 % (32.0-36.0); Mean Corpuscular Hemoglobin 31.6 pg (27.0-34.0); Mean Corpuscular Volume 93.4 fL (80.0-100.0); Mean Platelet Volume 7.9 fL (7.0-11.0); Mono # (Auto) 1.1 th/mm3 (0.0-0.9); Mono % (Auto) 17.4 % (0.0-8.0); Neut % (Auto) 60.9 % (16.0-70.0); Platelet Count 361 th/mm3 (150-450); Red Blood Count 3.48 mil/mm3 (4.00-5.30); Red Cell Distribution Width 12.8 % (11.6-17.2); White Blood Count 6.5 th/mm3 (4.0-11.0)
[2017-12-01 06:03] LABS: Albumin 1.9 g/dL (3.4-5.0); Anion Gap 8 meq/L (5-15); Blood Urea Nitrogen 5 mg/dL (7-18); Calcium 8.2 mg/dL (8.5-10.1); Carbon Dioxide 29.8 meq/L (21.0-32.0); Chloride 108 meq/L (98-107); Glomerular Filtration Rate Greater Than 89 mL/min (>89); Glucose,Random 96 mg/dL (74-106); Magnesium 1.9 mg/dL (1.5-2.5); Potassium 3.5 meq/L (3.5-5.1); Sodium 146 meq/L (136-145)
[2017-12-01] MEDS: Metoprolol Tartrate 50 MG Tablet PO SCH ×2 (08:59→21:05)
[2017-12-01] MEDS: Sodium Chloride 0.9% 2 ML Flush BID IV.FLUSH SCH ×2 (09:03→21:05)
[2017-12-01] MEDS: Furosemide 20 MG Tablet PO SCH (09:05)
[2017-12-01] MEDS ORDERED: Potassium Chloride Inj 10 MEQ in Dextrose 5% in Water Inj 1,000 ML IV.CONT SCH ×2 (12:00)
[2017-12-01] MEDS ORDERED: Furosemide 20 MG Tablet PO SCH (18:00)
--- NOTE | 2017-12-01 18:31 | P.PNIM ---
Subjective Interval history: patient says she's feeling a lot better today. Denies chest pain. Reports shortness breath improved. Physical Exam Vital signs: Vital Signs 11/30/17 19:00 11/30/17 20:00 11/30/17 21:00 Temperature 99.7 F H Pulse Rate 85 85 90 Respiratory Rate 20 Blood Pressure 140/73 Pulse Oximetry 92 L 11/30/17 22:00 11/30/17 22:44 11/30/17 23:00 Temperature 99.4 F Pulse Rate 84 84 Respiratory Rate Blood Pressure Pulse Oximetry 12/01/17 00:00 12/01/17 01:00 12/01/17 02:00 Temperature 99.3 F Pulse Rate 79 76 72 Respiratory Rate 18 Blood Pressure 104/60 Pulse Oximetry 12/01/17 03:00 12/01/17 03:56 12/01/17 04:00 Temperature 98.5 F Pulse Rate 72 78 78 Respiratory Rate 16 Blood Pressure 94/57 L Pulse Oximetry 90 L 12/01/17 05:00 12/01/17 06:00 12/01/17 07:00 Temperature Pulse Rate 82 84 75 Respiratory Rate Blood Pressure Pulse Oximetry 12/01/17 07:29 12/01/17 08:00 12/01/17 09:00 Temperature 98.8 F Pulse Rate 77 77 78 Respiratory Rate 16 Blood Pressure 127/67 Pulse Oximetry 95 12/01/17 10:00 12/01/17 11:00 12/01/17 12:00 Temperature 98.4 F Pulse Rate 76 74 76 Respiratory Rate 17 Blood Pressure 128/69 Pulse Oximetry 96 12/01/17 13:00 12/01/17 14:00 12/01/17 15:00 Temperature Pulse Rate 82 83 96 H Respiratory Rate Blood Pressure Pulse Oximetry 12/01/17 16:00 12/01/17 17:00 Temperature 98.7 F Pulse Rate 82 93 H Respiratory Rate 18 Blood Pressure 130/87 Pulse Oximetry 94 L Intake & Output 11/30/17 12/01/17 12/01/17 18:59 06:59 18:59 Intake Total 240 / 240 Output Total 900 / 900 1999 Balance -900 / -900 -1760 / -1760 Weight 60.5 kg Intake: Oral 240 / 240 Output: Urine 900 / 900 1999 Other: Date of Last Bowel Movement 11/29/17 11/29/17 Narrative: GENERAL: patient sitting up in bed. Appears comfortable.smiling. SKIN: Warm and dry. HEAD: Normocephalic. EYES: No scleral icterus. No injection or drainage. NECK: Supple, trachea midline. No JVD. CARDIOVASCULAR: Regular rate and rhythm without murmurs, gallops, or rubs. RESPIRATORY: Breath sounds equal bilaterally. No accessory muscle use. GASTROINTESTINAL: Abdomen soft, non-tender, nondistended. MUSCULOSKELETAL: No cyanosis, or edema. BACK: Nontender without obvious deformity. No CVA tenderness. . Results - Labs CBC & Chem 7: 12/01/17 05:19 12/01/17 05:19 Laboratory Results - last 24 hr 12/01/17 12/01/17 05:19 05:19 WBC 6.5 RBC 3.48 L Hgb 11.0 L Hct 32.5 L MCV 93.4 MCH 31.6 MCHC 33.9 RDW 12.8 Plt Count 361 D MPV 7.9 Neut % (Auto) 60.9 Lymph % (Auto) 18.6 [place] % (Auto) 17.4 H Eos % (Auto) 2.5 Baso % (Auto) 0.6 Neut # (Auto) 4.0 Lymph # (Auto) 1.2 [place] # (Auto) 1.1 H Eos # (Auto) 0.2 Baso # (Auto) 0.0 WBC Differential . 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 She returned on 11/28/17 complaining of feeling hot and hearing an irregular and fast rhythm with her stethoscope at home. She was found to be in Atrial fibrillation with RVR and is now admitted to the hospitalist service for further evaluation and management. //Atrial fibrillation with RVR, new onset - will start on oral Cardizem and try to taper off the Cardizem drip - TSH/ free T4 WNL - echo with normal EF - consulted cardiology -Continuous cardiac telemetry -check d-dimer = D-dimer elevated. CTA negative for pulmonary embolism, however does show small to monitor left-sided pleural effusion, moderate right-sided pleural effusion. Heart rate controlled on diltiazem. Cardiology following. Appreciate assistance. = Patient back in A. fib RVR. We will increase Cardizem to 60 mg 4 times a day. Was on Cardizem drip with rate of 15 prior to being placed on by mouth. =12/01. Switch to Metoprolol Yesterday Due To Borderline Low Blood Pressure on Cardizem. We'll Continue Metoprolol. Echocardiogram with normal ejection fraction. Will recheck BMP tomorrow. //Bilateral pleural effusions. = CT pulmonary antigram on admission with moderate right-sided pleural effusion , small to moderate left-sided effusion.- = Status post thoracentesis with predominantly monocytes, LDH 113. Transitive = Likely secondary to CHF versus malignancy. Cytology pending. Pulmonary following. Appreciate assistance. = Cytology pending. Pulmonology following. She assistance. //Chest pain/ flu-like illness -continue supportive care with IV fluid and pain control. Hypokalemia; replaced just- will monitor. DVT prophylaxis - Heparin 5000 mg subq q8h Discussed Condition With: patient, nurse, at bedside. Discharge Planning: plan discharge home tomorrow. PT consult ordered and pending. home oxygen evaluation.
--- NOTE | 2017-12-02 05:34 | XR ---
EXAM DATE: 12/02/2017 6:00 AM EDT AGE/SEX: 67 years / Female INDICATIONS: Short of breath. CLINICAL DATA: This is the patient's subsequent encounter. Patient reports that signs and symptoms h ave been present for 4 - 6 days and indicates a pain score of 0/10. MEDICAL/SURGICAL HISTORY: . A fib. None. COMPARISON: [facility] [place], CHEST EXPIRATION ONLY, 11/30/2017. [facility] [place], CHEST 1V SINGLE AP, 11/27/2017. . FINDINGS: Portable AP view of the chest demonstrates a normal-sized cardiac silhouette. There are small bibasil ar pleural-parenchymal opacities, stable to slightly increased from the prior study. No pneumothorax is identified. The bones demonstrate no acute abnormality. CONCLUSION: There are small bilateral pleural effusions with associated volume loss and/or airspace consolidation . These changes are either stable to slightly increased from the study from 2 days ago. Electronically signed by: Yong Tom MD 12/02/2017 5:33 AM EDT
[2017-12-02 05:57] LABS: Baso % (Auto) 0.6 % (0.0-2.0); Eos # (Auto) 0.2 th/mm3 (0.0-0.4); Eos % (Auto) 3.3 % (0.0-4.0); Hematocrit 35.2 % (35.0-46.0); Hemoglobin 12.2 gm/dL (11.6-15.3); Lymph # (Auto) 1.4 th/mm3 (1.0-4.8); Lymph % (Auto) 21.5 % (9.0-44.0); Mean Corpuscular HGB Conc 34.6 % (32.0-36.0); Mean Corpuscular Hemoglobin 31.8 pg (27.0-34.0); Mean Corpuscular Volume 91.8 fL (80.0-100.0); Mean Platelet Volume 7.9 fL (7.0-11.0); Mono # (Auto) 1.4 th/mm3 (0.0-0.9); Mono % (Auto) 21.3 % (0.0-8.0); Neut # (Auto) 3.4 th/mm3 (1.8-7.7); Neut % (Auto) 53.3 % (16.0-70.0); Platelet Count 420 th/mm3 (150-450); Red Blood Count 3.84 mil/mm3 (4.00-5.30); Red Cell Distribution Width 12.9 % (11.6-17.2); White Blood Count 6.4 th/mm3 (4.0-11.0)
[2017-12-02 06:17] LABS: Albumin 2.2 g/dL (3.4-5.0); Anion Gap 9 meq/L (5-15); Blood Urea Nitrogen 7 mg/dL (7-18); Calcium 8.6 mg/dL (8.5-10.1); Carbon Dioxide 29.5 meq/L (21.0-32.0); Chloride 104 meq/L (98-107); Glomerular Filtration Rate Greater Than 89 mL/min (>89); Glucose,Random 98 mg/dL (74-106); Phosphorus 3.7 mg/dL (2.5-4.9); Potassium 3.3 meq/L (3.5-5.1); Sodium 142 meq/L (136-145)
--- NOTE | 2017-12-02 08:39 | P.PNIM ---
Subjective Interval history: Patient says she is feeling much better today. Denies any chest pain or shortness of breath. Physical Exam Vital signs: Vital Signs 12/01/17 09:00 12/01/17 10:00 12/01/17 11:00 Temperature Pulse Rate 78 76 74 Respiratory Rate Blood Pressure Pulse Oximetry Pulse Oximetry [Resting on Room Air] 12/01/17 12:00 12/01/17 13:00 12/01/17 14:00 Temperature 98.4 F Pulse Rate 76 82 83 Respiratory Rate 17 Blood Pressure 128/69 Pulse Oximetry 96 Pulse Oximetry [Resting on Room Air] 12/01/17 15:00 12/01/17 16:00 12/01/17 17:00 Temperature 98.7 F Pulse Rate 96 H 82 93 H Respiratory Rate 18 Blood Pressure 130/87 Pulse Oximetry 94 L Pulse Oximetry [Resting on Room Air] 12/01/17 18:00 12/01/17 19:00 12/01/17 20:00 Temperature 99.2 F Pulse Rate 101 H 73 86 Respiratory Rate 16 Blood Pressure 133/86 Pulse Oximetry 95 Pulse Oximetry [Resting on Room Air] 87 L 12/01/17 21:00 12/01/17 22:00 12/01/17 22:12 Temperature Pulse Rate 108 H 72 Respiratory Rate Blood Pressure Pulse Oximetry 95 Pulse Oximetry [Resting on Room Air] 12/01/17 23:00 12/01/17 23:11 12/02/17 00:00 Temperature 99.1 F Pulse Rate 73 75 72 Respiratory Rate 16 Blood Pressure 126/72 Pulse Oximetry 95 Pulse Oximetry [Resting on Room Air] 12/02/17 01:00 12/02/17 02:00 12/02/17 03:00 Temperature Pulse Rate 72 76 75 Respiratory Rate Blood Pressure Pulse Oximetry Pulse Oximetry [Resting on Room Air] 12/02/17 03:46 12/02/17 04:00 12/02/17 05:00 Temperature 97.5 F L Pulse Rate 60 70 87 Respiratory Rate 16 Blood Pressure 145/64 H Pulse Oximetry 92 L Pulse Oximetry [Resting on Room Air] 12/02/17 06:00 12/02/17 07:00 Temperature Pulse Rate 81 84 Respiratory Rate Blood Pressure Pulse Oximetry Pulse Oximetry [Resting on Room Air] Intake & Output 12/01/17 12/02/17 12/02/17 18:59 06:59 18:59 Intake Total 720 / 720 240 / 240 Output Total 1500 / 1500 3300 / 3300 Balance -780 / -780 -3060 / -3060 Weight 58.5 kg Intake: Oral 720 / 720 240 / 240 Output: Urine 1500 / 1500 3300 / 3300 Other: Date of Last Bowel Movement 11/29/17 Narrative: GENERAL: patient sitting up in bed. Appears comfortable. SKIN: Warm and dry. HEAD: Normocephalic. EYES: No scleral icterus. No injection or drainage. NECK: Supple, trachea midline. No JVD. CARDIOVASCULAR: Regular rate and rhythm without murmurs, gallops, or rubs. RESPIRATORY: Breath sounds equal bilaterally. No accessory muscle use. GASTROINTESTINAL: Abdomen soft, non-tender, nondistended. MUSCULOSKELETAL: No cyanosis, or edema. BACK: Nontender without obvious deformity. No CVA tenderness. . Results - Labs CBC & Chem 7: 12/02/17 05:17 12/02/17 05:17 Laboratory Results - last 24 hr 12/02/17 12/02/17 12/02/17 05:17 05:17 05:17 WBC 6.4 RBC 3.84 L Hgb 12.2 Hct 35.2 MCV 91.8 MCH 31.8 MCHC 34.6 RDW 12.9 Plt Count 420 MPV 7.9 Neut % (Auto) 53.3 Lymph % (Auto) 21.5 [place] % (Auto) 21.3 H Eos % (Auto) 3.3 Baso % (Auto) 0.6 Neut # (Auto) 3.4 Lymph # (Auto) 1.4 [place] # (Auto) 1.4 H Eos # (Auto) 0.2 Baso # (Auto) 0.0 WBC Differential . Differential Comment Auto diff final Sodium 142 Potassium 3.3 L Chloride 104 Carbon Dioxide 29.5 Anion Gap 9 BUN 7 Creatinine 0.57 Estimated GFR Greater than 89 Random Glucose 98 Calcium 8.6 Phosphorus 3.7 B-Natriuretic Peptide 404 H Albumin 2.2 L Microbiology 11/30/17 09:50 Fluid - Pleural fluid Gram Stain - Final 11/30/17 09:50 Fluid - Pleural fluid Body Fluid Culture - Preliminary No growth in 24 hours - Imaging Impressions Chest X-Ray 12/02/17 06:00 CONCLUSION: There are small bilateral pleural effusions with associated volume loss and/or airspace consolidation. These changes are either stable to slightly increased from the study from 2 days ago. 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 She returned on 11/28/17 complaining of feeling hot and hearing an irregular and fast rhythm with her stethoscope at home. She was found to be in Atrial fibrillation with RVR and is now admitted to the hospitalist service for further evaluation and management. //Atrial fibrillation with RVR, new onset - will start on oral Cardizem and try to taper off the Cardizem drip - TSH/ free T4 WNL - echo with normal EF - consulted cardiology -Continuous cardiac telemetry -check d-dimer = D-dimer elevated. CTA negative for pulmonary embolism, however does show small to monitor left-sided pleural effusion, moderate right-sided pleural effusion. Heart rate controlled on diltiazem. Cardiology following. Appreciate assistance. = Patient back in A. fib RVR. We will increase Cardizem to 60 mg 4 times a day. Was on Cardizem drip with rate of 15 prior to being placed on by mouth. =12/01. Switch to Metoprolol Yesterday Due To Borderline Low Blood Pressure on Cardizem. We'll Continue Metoprolol. Echocardiogram with normal ejection fraction. Will recheck BMP tomorrow. = 12/01. Appears to be off oxygen now. Will await home oxygen evaluation. Hopefully can discharge later today on Lasix, lisinopril, metoprolol. Appreciate cardiology assistance. //Bilateral pleural effusions. = CT pulmonary antigram on admission with moderate right-sided pleural effusion , small to moderate left-sided effusion.- = Status post thoracentesis with predominantly monocytes, LDH 113. Transitive = Likely secondary to CHF versus malignancy. Cytology pending. Pulmonary following. Appreciate assistance. = Cytology pending. Pulmonology following. She assistance. = 12/02. Cytology negative for malignancy. Discussed with patient that this does not rule out malignancy. She will need to follow with primary care and pulmonology as outpatient. //Chest pain/ flu-like illness -continue supportive care with IV fluid and pain control. //Hypokalemia; = 12/02. Potassium 3.3 secondary to Lasix. Replaced. DVT prophylaxis - scd Discharge Planning: plan discharge home tomorrow. PT consult ordered and pending. home oxygen evaluation.
--- NOTE | 2017-12-02 08:54 | P.DS ---
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 She returned on 11/28/17 complaining of feeling hot and hearing an irregular and fast rhythm with her stethoscope at home. She was found to be in Atrial fibrillation with RVR and is now admitted to the hospitalist service for further evaluation and management. The patient is seen in her hospital room. She reports that she had 5 days of fever and chills and they seem to go away on Thursday but returned Thursday morning prompting her visit to the emergency room. Her temperature was 101.0 in the ER. Flu testing was negative for flu a and B. Blood cultures were drawn. Chest x-ray showed trace left base atelectasis and was otherwise normal. The patient was treated with Motrin and Tylenol and sent home. After the patient was discharged from the emergency room, she went home to lie down on her bed. She noticed that she was feeling extremely warm and she decided to listen to her chest with her stethoscope. She noticed a rapid and irregular rate and decided to return to the hospital. She was also experiencing severe chest pain that was worse when she tried to take a deep breath and was also worse when she was laying on side and was relieved when she rolled over onto her right side. She is a lifelong non-smoker who recently lost her mother to cancer. . DS: Medications - Discharge Medications Prescriptions: aspirin [Aspirin Low Dose] 81 mg PO DAILY 30 Days #30 tab furosemide 20 mg PO BID@0900,1800 30 Days tab lisinopril 5 mg PO DAILY 30 Days #30 tab metoprolol tartrate 50 mg PO BID 30 Days #60 tab potassium chloride 10 meq PO DAILY 30 Days #30 tab DS: Summary Hospital Course: Patient presented with low-grade temperature 99.7, atrial fibrillation, RVR. This improved with initially diltiazem, however due to borderline low blood pressure, switch to metoprolol. Cardiology was consulted and recommends addition of aspirin and follow up with cardiology as outpatient. CT angiogram on admission negative for pulmonary embolism, however shows bilateral pleural effusions right greater than left. BNP elevated at 582. Patient underwent thoracentesis which appears transitive. Pulmonology was consulted and feels that effusion is secondary to CHF. Echocardiogram shows normal ejection fraction, however elevated estimated pulmonary arterial pressures of 43 mmHg. Patient will be started on diuretics, afterload reduction, fluid restriction. Close follow-up with cardiology and primary care. For problem-based summary from most recent progress note, please see below. 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 She returned on 11/28/17 complaining of feeling hot and hearing an irregular and fast rhythm with her stethoscope at home. She was found to be in Atrial fibrillation with RVR and is now admitted to the hospitalist service for further evaluation and management. //Atrial fibrillation with RVR, new onset - will start on oral Cardizem and try to taper off the Cardizem drip - TSH/ free T4 WNL - echo with normal EF - consulted cardiology -Continuous cardiac telemetry -check d-dimer = D-dimer elevated. CTA negative for pulmonary embolism, however does show small to monitor left-sided pleural effusion, moderate right-sided pleural effusion. Heart rate controlled on diltiazem. Cardiology following. Appreciate assistance. = Patient back in A. fib RVR. We will increase Cardizem to 60 mg 4 times a day. Was on Cardizem drip with rate of 15 prior to being placed on by mouth. =12/01. Switch to Metoprolol Yesterday Due To Borderline Low Blood Pressure on Cardizem. We'll Continue Metoprolol. Echocardiogram with normal ejection fraction. Will recheck BMP tomorrow. = 12/01. Appears to be off oxygen now. Will await home oxygen evaluation. Hopefully can discharge later today on Lasix, lisinopril, metoprolol. Appreciate cardiology assistance. //Bilateral pleural effusions. = CT pulmonary antigram on admission with moderate right-sided pleural effusion , small to moderate left-sided effusion.- = Status post thoracentesis with predominantly monocytes, LDH 113. Transitive = Likely secondary to CHF versus malignancy. Cytology pending. Pulmonary following. Appreciate assistance. = Cytology pending. Pulmonology following. She assistance. = 12/02. Cytology negative for malignancy. Discussed with patient that this does not rule out malignancy. She will need to follow with primary care and pulmonology as outpatient. //Chest pain/ flu-like illness -continue supportive care with IV fluid and pain control. //Hypokalemia; = 12/02. Potassium 3.3 secondary to Lasix. Replaced. DVT prophylaxis - scd Discharge Planning: plan discharge home tomorrow. PT consult ordered and pending. home oxygen evaluation. - Time Spent with Patient Total time spent providing and/or coordinating discharge services: Greater than 30 minutes - Quality: VTE Deep Vein Thrombosis/Pulmonary Embolism Present on Admission: No Exam Vital signs: Vital Signs 12/01/17 09:00 12/01/17 10:00 12/01/17 11:00 Temperature Pulse Rate 78 76 74 Respiratory Rate Blood Pressure Pulse Oximetry Pulse Oximetry [Exertion on Room Air] Pulse Oximetry [Resting on Room Air] 12/01/17 12:00 12/01/17 13:00 12/01/17 14:00 Temperature 98.4 F Pulse Rate 76 82 83 Respiratory Rate 17 Blood Pressure 128/69 Pulse Oximetry 96 Pulse Oximetry [Exertion on Room Air] Pulse Oximetry [Resting on Room Air] 12/01/17 15:00 12/01/17 16:00 12/01/17 17:00 Temperature 98.7 F Pulse Rate 96 H 82 93 H Respiratory Rate 18 Blood Pressure 130/87 Pulse Oximetry 94 L Pulse Oximetry [Exertion on Room Air] Pulse Oximetry [Resting on Room Air] 12/01/17 18:00 12/01/17 19:00 12/01/17 20:00 Temperature 99.2 F Pulse Rate 101 H 73 86 Respiratory Rate 16 Blood Pressure 133/86 Pulse Oximetry 95 Pulse Oximetry [Exertion on Room Air] Pulse Oximetry [Resting on Room Air] 87 L 12/01/17 21:00 12/01/17 22:00 12/01/17 22:12 Temperature Pulse Rate 108 H 72 Respiratory Rate Blood Pressure Pulse Oximetry 95 Pulse Oximetry [Exertion on Room Air] Pulse Oximetry [Resting on Room Air] 12/01/17 23:00 12/01/17 23:11 12/02/17 00:00 Temperature 99.1 F Pulse Rate 73 75 72 Respiratory Rate 16 Blood Pressure 126/72 Pulse Oximetry 95 Pulse Oximetry [Exertion on Room Air] Pulse Oximetry [Resting on Room Air] 12/02/17 01:00 12/02/17 02:00 12/02/17 03:00 Temperature Pulse Rate 72 76 75 Respiratory Rate Blood Pressure Pulse Oximetry Pulse Oximetry [Exertion on Room Air] Pulse Oximetry [Resting on Room Air] 12/02/17 03:46 12/02/17 04:00 12/02/17 05:00 Temperature 97.5 F L Pulse Rate 60 70 87 Respiratory Rate 16 Blood Pressure 145/64 H Pulse Oximetry 92 L Pulse Oximetry [Exertion on Room Air] Pulse Oximetry [Resting on Room Air] 12/02/17 06:00 12/02/17 07:00 12/02/17 08:43 Temperature Pulse Rate 81 84 Respiratory Rate Blood Pressure Pulse Oximetry Pulse Oximetry [Exertion on Room Air] 92 L Pulse Oximetry [Resting on Room Air] 94 L Intake & Output 12/01/17 12/02/17 12/02/17 18:59 06:59 18:59 Intake Total 720 / 720 240 / 240 Output Total 1500 / 1500 3300 / 3300 Balance -780 / -780 -3060 / -3060 Weight 58.5 kg Intake: Oral 720 / 720 240 / 240 Output: Urine 1500 / 1500 3300 / 3300 Other: Date of Last Bowel Movement 11/29/17 Results Procedures completed during hospitalization: Thoracentesis. Please see report. Labs on day of discharge: Labs from last 24 hours 12/02/17 12/02/17 12/02/17 05:17 05:17 05:17 WBC 6.4 RBC 3.84 L Hgb 12.2 Hct 35.2 MCV 91.8 MCH 31.8 MCHC 34.6 RDW 12.9 Plt Count 420 MPV 7.9 Neut % (Auto) 53.3 Lymph % (Auto) 21.5 [place] % (Auto) 21.3 H Eos % (Auto) 3.3 Baso % (Auto) 0.6 Neut # (Auto) 3.4 Lymph # (Auto) 1.4 [place] # (Auto) 1.4 H Eos # (Auto) 0.2 Baso # (Auto) 0.0 WBC Differential . Differential Comment Auto diff final Sodium 142 Potassium 3.3 L Chloride 104 Carbon Dioxide 29.5 Anion Gap 9 BUN 7 Creatinine 0.57 Estimated GFR Greater than 89 Random Glucose 98 Calcium 8.6 Phosphorus 3.7 B-Natriuretic Peptide 404 H Albumin 2.2 L Preliminary micro results at discharge 11/30/17 09:50 Body Fluid Culture - Preliminary Fluid - Pleural fluid No growth in 24 hours - Impressions ITS Impressions Chest CTA 11/29/17 00:00 CONCLUSION: 1. No evidence of pulmonary embolus. 2. Moderate right pleural effusion. Small to moderate left-sided pleural effusion. 3. Compressive atelectasis in both lung bases, right greater than left secondary to the pleural effusions. Thoracentesis Ultrasound 11/30/17 00:00 CONCLUSION: 1. Uncomplicated thoracentesis Chest X-Ray 12/02/17 06:00 CONCLUSION: There are small bilateral pleural effusions with associated volume loss and/or airspace consolidation. These changes are either stable to slightly increased from the study from 2 days ago. Discharge Plan - Discharge Disposition Patient Disposition: 01 Discharge Home - Discharge Condition Condition: Good - Discharge Order Discharge Orders: Discharge Order (Routine); Ordered 12/02/17 Ordered By: Wil Jones - Discharge Details Anticipated Discharge Date: 12/02/17 Discharge Comment: partient will need to discuss anticoagulation with cardiology , primary care. - Physicians Team Primary Care Provider: Alonzo Howe Attending Provider: Wil Jones Other Providers: Taurus Power MD ; Eyal Urena MD ; Jagdish Nuñez MD
[2017-12-02] MEDS ORDERED: Furosemide 20 MG Tablet PO SCH (09:00)
[2017-12-02] MEDS ORDERED: Lisinopril 5 MG Tablet PO SCH (09:00)
[2017-12-02] MEDS: Metoprolol Tartrate 50 MG Tablet PO SCH (09:03)
[2017-12-02] MEDS: Sodium Chloride 0.9% 2 ML Flush BID IV.FLUSH SCH (09:04)
[2017-12-02 10:01] VITALS: BP 104/63; RESP 17; TEMP 98.4; O2SAT 95
[2017-12-02 10:02] VITALS: PULSE 86
== END 2017-12-02 10:44 | disposition home or self-care (01) ==
LOC: NEPE 23:11 → NEDA 11-28 02:25 → HCPC 11-28 03:11
PROVIDERS: ADMIT Internal Medicine; ATTEND Internal Medicine